=== PATIENT | male | born 1970 | race Caucasian/White ===

== ENCOUNTER 2021-11-16 10:11 | Emergency (ER) | payer BC, SELFPAY ==
--- NOTE | ~2021-11-16 | XR_ITS ---
XR chest 2V 11/16/2021 11:05 Indication: Shortness of breath and CHF Procedure: Two-view chest Comparison: No prior studies for comparison. Findings: Cardiomegaly. Defibrillator lead overlies the right atrium. No focal air space disease, pul monary edema, pleural effusion or suspected pneumothorax. Impression: 1: Cardiomegaly. Reviewed, dictated and finalized at location A. Impression: 1: Cardiomegaly.
[2021-11-16 10:27] VITALS: BP 194/171; PULSE 90; RESP 34; TEMP 37; O2SAT 99
--- NOTE | 2021-11-16 10:36 | ED.URI ---
HPI - URI/Sore Throat General Chief Complaint: Shortness of Breath/Dyspnea Stated Complaint: cough that makes it hard to breathe Time Seen by Provider: 11/16/21 10:43 Source: patient and RN notes reviewed Mode of arrival: ambulatory Limitations: no limitations History of Present Illness HPI Narrative: 51-year-old male with history of CHF diabetes, kidney failure, dialysis, presents with concern for cough and shortness of breath. He reports he has had a runny nose for approximately 1 week, he has been coughing for 2 days. He reports sweats. Denies chills or fever. Reports chronic body aches. He denies take any suyo-iqw-cxlwdzn cold medicines. He reports he did not take his blood pressure medication today MD elicited complaint: cough Related Data Home Medications Medication Instructions Recorded Confirmed albuterol sulfate 90 mcg/actuation inh inhalation 11/16/21 aerosol inhaler allopurinol 100 mg tablet tablet 11/16/21 allopurinol 300 mg tablet tablet 11/16/21 atorvastatin 20 mg tablet tablet 11/16/21 bupropion HCl 150 mg tablet,12 hr 150 mg PO BID 11/16/21 11/16/21 sustained-release carvedilol 25 mg tablet tablet 11/16/21 cyclobenzaprine 5 mg tablet tablet 11/16/21 dulaglutide 0.75 mg/0.5 mL ea subcut 11/16/21 subcutaneous pen injector (Trulicity) ezetimibe 10 mg tablet tablet 11/16/21 famotidine 20 mg tablet tablet 11/16/21 gabapentin 600 mg tablet tablet 11/16/21 levothyroxine 100 mcg tablet tablet 11/16/21 potassium chloride 20 mEq tablet PO 11/16/21 tablet,extended release(part/cryst) (Klor-Con M) sacubitril 49 mg-valsartan 51 mg tablet 11/16/21 tablet (Entresto) sevelamer carbonate 800 mg tablet tablet 11/16/21 spironolactone 25 mg tablet tablet 11/16/21 Allergies Allergy/AdvReac Type Severity Reaction Status Date / Time No Known Allergies Allergy Verified 11/16/21 10:45 Review of Systems Review of Systems: CONSTITUTIONAL: Denies malaise, chills, sweats, or fever. EYES: Denies visual changes, redness, or discharge. ENT: Reports rhinorrhea. Denies congestion, sinus pain, otalgia and sore throat. CARDIOVASCULAR: Denies chest pain, palpitations, or edema. RESPIRATORY: Reports cough, dyspnea. GASTROINTESTINAL: Denies abdominal pain, nausea, vomiting, diarrhea SKIN: Denies rash or itching. MUSCULOSKELETAL: Reports chronic myalgia. NEUROLOGIC: Denies headache. All systems reviewed & are unremarkable except as noted in HPI and below PMFSH Comments At time of signature, agree with nursing past medical, surgical, social and family history. There is no relevant family history pertinent to the presenting complaint Exam Narrative: GENERAL: Nontoxic appearing and in no acute distress. HEAD: Normocephalic EYES: PERRLA, conjunctivae clear ENT: Nares clear, clear discharge. Mucous membranes moist. TM pearly mayes with sharp light reflex bilaterally; no tragal tenderness. Oropharynx not erythematous without lesions. Tonsils not enlarged and without exudate, no drooling, no hoarseness, no trismus, uvula midline. NECK: Supple. No lymphadenopathy CHEST: Clear to auscultation, breath sounds equal. No wheezing, rhonchi, rales, or stridor. No respiratory distress, speaks in full sentences. HEART: Regular rate and rhythm. Murmur heard. SKIN: Warm, dry, no rash. NEURO: Alert and oriented x3. PSYCH: Normal mood and affect Course Course Emergency Course: Patient is aware of diagnosis, understands and agrees to treatment plan. Anticipatory guidance given. Patient agrees to follow-up as directed and is aware of reasons to seek care at the emergency department. Portions of this record may have been created with voice recognition software Level of Care: Express Care Visit Vital Signs Vital signs: Vital Signs Temperature 98.6 F 11/16/21 10:27 Pulse Rate 90 11/16/21 10:27 Respiratory Rate 34 H 11/16/21 10:27 Blood Pressure 194/171 H 11/16/21 10:27 Pulse Oximetry 99 11/16/21 1
[2021-11-16 10:45] VITALS: BP 170/100
--- NOTE | 2021-11-16 12:15 | PC.NURSE ---
1030 reported did not take b/p med today, will take when returns home. ORCHESTRA TEACHER aware.
== END 2021-11-16 11:35 | disposition home or self-care (01) ==
PROVIDERS: Emergency Provider Nurse Practitioner; PCP Internal Medicine
DX: J06.9 Acute upper respiratory infection, unspecified (principal); Z20.822 Contact with and (suspected) exposure to COVID-19; E78.00 Pure hypercholesterolemia, unspecified; K21.9 Gastro-esophageal reflux disease without esophagitis; I13.2 Hypertensive heart and chronic kidney disease with heart failure and with stage 5 chronic kidney disease, or end stage renal disease; E11.22 Type 2 diabetes mellitus with diabetic chronic kidney disease; N18.6 End stage renal disease; I50.9 Heart failure, unspecified; Z99.2 Dependence on renal dialysis; E03.9 Hypothyroidism, unspecified; E11.40 Type 2 diabetes mellitus with diabetic neuropathy, unspecified
CPT/HCPCS: 71046; 87426; 99213; C9803; G0463

== ENCOUNTER 2024-05-10 14:08 | Emergency (ER) | payer BC, SELFPAY ==
--- NOTE | ~2024-05-10 | XR_ITS ---
EXAMINATION: XR chest 2V DATE: 05/10/2024 14:58 INDICATION: Cough and increased dyspnea TECHNIQUE: frontal and lateral views of the chest were obtained. COMPARISON: Chest radiograph dated 11/16/2021 FINDINGS: Heart size normal. There is enlargement of the central pulmonary arteries consistent with pulmonary a rterial hypertension. No focal airspace opacities, pulmonary edema, pleural effusion or pneumothorax. Dual lead pacemaker/AICD seen with leads projecting over the expected locations of the right atrium and right ventricle. There is an additional likely defibrillator with lead in the presternal subcut aneous tissues. IMPRESSION: 1. Unchanged enlargement of the central pulmonary arteries consistent with pulmonary arterial hyperte nsion. No acute cardiopulmonary disease. Reviewed, dictated and finalized at location B. NT EVALUATOR IMPRESSION: 1. Unchanged enlargement of the central pulmonary arteries consistent with pulm onary arterial hypertension. No acute cardiopulmonary disease.
[2024-05-10 14:18] VITALS: BP 142/77; PULSE 111; RESP 20; TEMP 37.6; O2SAT 97
--- NOTE | 2024-05-10 14:31 | ED_ITS ---
HPI - URI/Sore Throat General Chief Complaint: Upper Respiratory Infection Stated Complaint: flu like symptoms Time Seen by Provider: 05/10/24 14:31 Source: patient, RN notes reviewed and old records reviewed Mode of arrival: ambulatory Limitations: no limitations History of Present Illness HPI Narrative: 53 year old male with multiple health problems presents to express care with complaints of increase cough with increased production of mucous and shortness of breath and body aches since yesterday. Patient reports that he has been taking cold and flu medication and also some cough medication. Patient reports that he had to call off work today and needs a work note. Patient reports that he has not noted any increase pedal edema or any increased fullness to abdomen or lower extremities. MD elicited complaint: cough and other (body aches, shortness of breath) Pertinent past history: other (CHF, neueopathy, diabetes, pacemaker with AICD, previously was on dialysis, hypertension) Onset (ago): day(s) (since yesterday) Consistency: constant Severity: moderate Able to tolerate fluids by mouth: Yes Exacerbating factors: other (incrased dyspnea with exertion) Treatments prior to arrival: other (cough medication, cold and flu medication) Related Data Home Medications ?Medication ?Instructions ?Recorded ?Confirmed ?Last Taken ?Type allopurinol 100 mg tablet 1 tablet PO DAILY 11/16/21 11/18/21 Unknown History allopurinol 300 mg tablet 1 tablet PO DAILY 11/16/21 11/18/21 Unknown History atorvastatin 20 mg tablet 1 tablet PO DAILY 11/16/21 11/18/21 Unknown History bupropion HCl 150 mg tablet,12 hr 150 mg PO BID 11/16/21 11/16/21 Unknown History sustained-release carvedilol 25 mg tablet 25 tablet PO TID 11/16/21 11/18/21 Unknown History ezetimibe 10 mg tablet 1 tablet PO DAILY 11/16/21 11/18/21 Unknown History famotidine 20 mg tablet 1 tablet PO DAILY 11/16/21 11/18/21 Unknown History gabapentin 600 mg tablet 1 tablet PO TID 11/16/21 11/18/21 Unknown History levothyroxine 100 mcg tablet 1 tablet PO DAILY 11/16/21 11/18/21 Unknown History sacubitril 49 mg-valsartan 51 mg 1 tablet PO BID 11/16/21 11/18/21 Unknown History tablet (Entresto) sevelamer carbonate 800 mg tablet 1 tablet PO TID 11/16/21 11/18/21 Unknown History spironolactone 25 mg tablet 2 tablet PO DAILY 11/16/21 11/18/21 Unknown History insulin aspart U-100 .ROUTE 05/10/24 Unknown History torsemide .ROUTE 05/10/24 Unknown History Allergies Allergy/AdvReac Type Severity Reaction Status Date / Time No Known Allergies Allergy Verified 05/10/24 14:22 Review of Systems Review of Systems: CONSTITUTIONAL: Reports malaise, reports no chills, sweats, or fever. EYES: Denies visual changes, redness, or discharge. ENT: Reports rhinorrhea, congestion, sinus pain,no otalgia and no sore throat. CARDIOVASCULAR: Denies chest pain, palpitations, or edema. RESPIRATORY: Reports cough.?Reports dyspnea. GASTROINTESTINAL: Denies abdominal pain, nausea, vomiting, diarrhea SKIN: Denies rash or itching. MUSCULOSKELETAL:Reports myalgia. NEUROLOGIC: Denies headache. All systems reviewed & are unremarkable except as noted in HPI and below PMFSH Past Medical History Medical History (Updated 05/13/24 @ 21:05 by Qiana Hamilton NP) Kidney disorder was formerly on dialysis but is no longer requiring dialysis Hemodialysis access, AV graft former history of dialysis Presence of combination internal cardiac defibrillator (ICD) and pacemaker Neuropathy Hypothyroidism Diabetes Hyperlipidemia Hypertension CHF (congestive heart failure) Surgical History Surgical History (Updated 05/13/24 @ 21:00 by Qiana Hamilton NP) H/O left knee surgery Social History Social History (Updated 05/13/24 @ 20:56 by Qiana Hamilton NP) Smoking status: Never smoker Alcohol intake: unknown Substance use: unknown Living arrangements: with family Gender identity (if verbalized by the patient): Male Comments At time of signature, agree with nursing past medical, surgical, social and family history. There is no relevant family history pertinent to the presenting complaint Exam Narrative: GENERAL: Well-appearing, well-nourished, morbidly obese and in no acute distress. HEAD: Normocephalic EYES: PERRLA, conjunctivae clear ENT: Nares clear, turbinates edematous and erythematous, clear discharge. Mucous membranes moist. TM pearly mayes with dull light reflex bilaterally; no tragal tenderness. Oropharynx erythematous without lesions. Tonsils not enlarged and w ithout exudate, no drooling, no hoarseness, no trismus, uvula midline.post nasal drainage noted NECK: Supple. No lymphadenopathy CHEST: Scattered wheezing throughout lung olsen, breath sounds equal.+ wheezing, no rhonchi, rales, or stridor. No respiratory distress, speaks in full sentences. dyspnea with minimal exertion, cough noted SAO2 97% on room air HEART: Regular rate and rhythm. No murmur heard., trace pedal edema SKIN: Warm, dry, no rash. NEURO: Alert and oriented x3. PSYCH: Normal mood and affect Course Course Emergency Course: Patient is aware of diagnosis, understands and agrees to treatment plan.? Anticipatory guidance given.? Patient agrees to follow-up as directed and is aware of reasons to seek care at the emergency department. Portions of this record may have been created with voice recognition software Level of Care: Express Care Visit Vital Signs Vital signs: Vital Signs Temperature 37.6 C 05/10/24 14:18 Pulse Rate 111 H 05/10/24 14:18 Respiratory Rate 20 05/10/24 14:18 Blood Pressure 142/77 H 05/10/24 14:18 Pulse Oximetry 97 05/10/24 14:18 Oxygen Delivery Room Air 05/10/24 14:18 Temperature 37.6 C 05/10/24 14:18 Pulse Rate 111 H 05/10/24 14:18 Respiratory Rate 20 05/10/24 14:18 Blood Pressure 142/77 H 05/10/24 14:18 Pulse Oximetry 97 05/10/24 14:18 Oxygen Delivery Room Air 05/10/24 14:18 Reviewed MDM - URI/Sore Throat MDM Narrative Medical decision making narrative: Differential diagnosis considered: Gonzalez virus, strep pharyngitis, allergic rhinitis, upper respiratory tract infection, sinusitis, rhinosinusitis, nasopharyngitis. viral pharyngitis, otitis media, otitis externa, pneumonia, bronchitis, viral cough syndrome, viral syndrome, and influenza.? Exam findings show no acute concerns or changes; patient is non-toxic appearing and is in no distress.? Patient is appropriate for outpatient treatment and follow-up. Differential Diagnosis Differential diagnosis: Likely upper respiratory infection, viral infection, bronchitis, influenza and other (COVID, increased dyspnea) Medical Records Attestation: I reviewed the patient's medical records. Lab Data Attestation: I reviewed the patient's lab results. Lab results narrative: influenza A negative, Influenza B negative, COVID antigen negative Labs: Lab Results 05/10/24 05/10/24 05/10/24 Range/Units 14:33 14:33 14:34 POC Influenza A Ag Negative Negative (Negative) POC Influenza B Ag Negative Negative (Negative) POC SARS CoV-2 Ag Negative Negative (Negative) Imaging Data Attestation: I personally reviewed and interpreted this imaging study as follows: My impression: unchanged enlargement of the central pulmonary arteries consistent with pulmonary arterial hypertension No acute cardiopulmonary disease Radiologist's impression: Launch?[facility] [place] [address] XRay Report Signed Patient: Noel Barrios : 1970 MR#: [id number] Age: 53 Acct:[id number] Loc: [facility] ADM Date: 05/10/24Attending Dr: Ordering Physician: Qiana Hamilton APRN Date of Service: 05/10/24 Procedure(s): XR chest 2V Accession Number(s): [id number] cc: Lilia, Jose Lawrence MD; Qiana Hamilton APRN~ EXAMINATION: XR chest 2V DATE: 05/10/2024 14:58 INDICATION: Cough and increased dyspnea TECHNIQUE: frontal and lateral views of the chest were obtained. COMPARISON: Chest radiograph dated 11/16/2021 FINDINGS: Heart size normal. There is enlargement of the central pulmonary arteries consistent with pulmonary arterial hypertension. No focal airspace opacities, pulmonary edema, pleural effusion or pneumothorax. Dual lead pacemaker/AICD seen with leads projecting over the expected locations of the right atrium and right ventricle. There is an additional likely defibrillator with lead in the presternal subcutaneous tissues. IMPRESSION: 1. Unchanged enlargement of the central pulmonary arteries consistent with pulmonary arterial hypertension. No acute cardiopulmonary disease. Reviewed, dictated and finalized at location B. BER HELPER Dictated By: Benitez Sheridan MD 05/10/24 1501 Signed By: <Electronically signed by Benitez Sheridan MD in OV> Critical Care Time Critical Care Time Critical Care Time: No Discharge Plan Discharge Clinical Impression: Bronchitis, PAH (pulmonary artery hypertension) Patient Disposition: Home, Self-Care Condition: Stable Instructions: Antibiotic Form, Acute Bronchitis (ED) Additional Instructions: Increase fluids especially juices and water [facility]pmt-pit-acreihm cough and cold medicine of your choice for your symptoms Continue your inhaler/nebulizer as directed patient reports that he has inhaler at home of Albuterol Steroids as directed--take with food heat to the face 20-30 minutes 4-6 times a day for pain Salt water gargles, throat lozenges or throat sprays as desired Antibiotic as directed--finished the medication If your symptoms persist, change or worsen significantly before you can contact your personal physician then please, without delay, go to the emergency department for further evaluation. Follow-up with PCP in 7-10 days or sooner if needed Follow up with PCP soon in regards to your blood pressure which is elevated above threshold for referral. Blood pressure above 120/80 may indicate pre- hypertension.142/[address] Rodrigues for follow up appointment soon Patient Language: Bulgarian Prescriptions: New azithromycin 250 mg tablet See Rx Instructions .ROUTE .COMPLEX Qty: 6 0RF Rx Instructions: For 250 mg dose pack: take 500 mg today (day 1), then 250 mg for 4 days (days 2-5) prednisone 20 mg tablet 20 mg PO BID Qty: 10 0RF No Action carvedilol 25 mg tablet 25 tablet PO TID gabapentin 600 mg tablet 1 tablet PO TID atorvastatin 20 mg tablet 1 tablet PO DAILY allopurinol 100 mg tablet 1 tablet PO DAILY spironolactone 25 mg tablet 2 tablet PO DAILY levothyroxine 100 mcg tablet 1 tablet PO DAILY famotidine 20 mg tablet 1 tablet PO DAILY allopurinol 300 mg tablet 1 tablet PO DAILY ezetimibe 10 mg tablet 1 tablet PO DAILY sevelamer carbonate 800 mg tablet 1 tablet PO TID Entresto 49-51 mg tablet 1 tablet PO BID bupropion HCl 150 mg Tablet Sustained-Release 12 Hr 150 mg PO BID torsemide .ROUTE insulin aspart U-100 [Novolog FlexPen U-100 Insulin] .ROUTE Follow-up/Referrals: Lilia,Jose Lawrence MD [Primary Care Provider] - Stand Alone Forms: Work/School Release IP Time of Disposition: 15:23 Quality [place] Coma Scale Eyes: Open Verbal: Oriented and Alert Motor: Follows Commands [place] Coma Total Score: 15
[2024-05-10 14:35] LABS: EDCOVIDSCREEN Negative (Negative); EDINFLUASCREEN Negative (Negative); EDINFLUBSCREEN Negative (Negative)
[2024-05-10 14:36] LABS: EDINFLUASCREEN Negative (Negative); EDINFLUBSCREEN Negative (Negative)
== END 2024-05-10 15:30 | disposition home or self-care (01) ==
PROVIDERS: Emergency Provider Registered Nurse; PCP Internal Medicine
DX: J40 Bronchitis, not specified as acute or chronic (principal); I27.21 Secondary pulmonary arterial hypertension; Z20.822 Contact with and (suspected) exposure to COVID-19; I11.0 Hypertensive heart disease with heart failure; E11.40 Type 2 diabetes mellitus with diabetic neuropathy, unspecified; E03.9 Hypothyroidism, unspecified; E78.5 Hyperlipidemia, unspecified; Z95.810 Presence of automatic (implantable) cardiac defibrillator
CPT/HCPCS: 71046; 87426; 87804; 99213; G0463

== ENCOUNTER 2024-06-10 16:21 | Emergency (ER) | payer BC, SELFPAY ==
--- NOTE | ~2024-06-10 | XR_ITS ---
EXAMINATION: XR chest 2V DATE: 06/10/2024 17:09 INDICATION: Cough. TECHNIQUE: Frontal and lateral views of the chest were obtained on 3 radiographs. COMPARISON: Chest 2 views 05/10/2024 FINDINGS: There is no pneumonia, pleural effusion, or pneumothorax. The heart size is normal. There i s a left chest wall pacer with leads in the right atrium and right ventricle. There is an implanted d efibrillator with electrode overlying the midline. IMPRESSION: 1. No acute cardiopulmonary disease. Reviewed, dictated and finalized at location A. R RELATIONS COORDINATOR
--- OUTSIDE RECORDS SUMMARY | 2024-06-10 16:23 | XMS_ITS | Clinical Summary ---
Author Organization [facility] Address [address] [place] [address] Phone Care Team Providers Care Community Services Coordinator Name Role Phone Jose Rodrigues MD Primary Care Provider [phone] Social History Tobacco Use Types Packs/Day Years Used Date Smoking Tobacco: Never Assessed Sex and Gender Information Value Date Recorded Sex Assigned at Not on file Legal Sex Male 10:56 PM CDT Gender Identity Not on file Sexual Orientation Not on file Plan of Treatment Health Maintenance Due Date Last Done Comments Hepatitis C Virus (HCV) Screening 1970 TdaP Immunization 1970 Hepatitis B Immunization (1 of 3 - 19+ 3-dose series) 1988 Colonoscopy 2014 Colorectal Cancer Screening 2014 Cologuard 2019 Immunochemical Fecal Occult Blood 2019 Pneumococcal Immunization (5 0+ years) (1 of 1 - PCV) 2019 Zoster Immunization (1 of 2) 2019 Influenza Immunization (#1) 2024 SARS-COV-2 Immunization ( - 2023- season) 2024 Respiratory Syncytial Virus (RSV) Immunization (Adult) (1 - 1-dose 75+ series) 2044 Meningococcal Immunization (ACWY) Aged Out No longer eligible based on patient's age to complete this topic Pneumococcal Immunization Combined Aged Out No longer eligible based on patient's age to complete this topic Rotavirus Immunization Aged Out No lo nger eligible based on patient's age to complete this topic Insurance [facility] Care Teams Community Services Coordinator Relationship Specialty Start Date End Date Jose Rodrigues MD [address] [place] [id number] PCP - General 05/21/17
--- OUTSIDE RECORDS SUMMARY | 2024-06-10 16:24 | XMS_ITS | Encounter Summary ---
Author Organization [facility] Address [address] [place] [address] Care Team Providers Care Senior Associate Name Role Phone Jose Rodrigues MD Primary Care Provider [phone] Reason for Visit * Reason Onset Date Comments Needs Form Or Letter Filled Out 03/07/2022 Encounter Details Date Type Department Care Team (Late st Contact Info) Description 03/07/2022 Telephone [facility] [address] [place] [address] Jose Rodrigues MD [address] [place] [address] [address] [place] [address] Needs Form Or Letter Filled Out Social History Tobacco Use Types Packs/Day Years Used Date Smoking Tobacco: Never Smokeless Tobacco: Never Alcohol Use Standard Drinks/Week Comments No 0 (1 standard drink = 0.6 oz pur e alcohol) Sex and Gender Information Value Date Recorded Sex Assigned at Not on file Legal Sex Male 11:33 AM CDT Gender Identity Not on file Sexual Orientation Not on file COVID-19 Exposure Response Date Recorded In the last 10 days, have yo u been in contact with someone who was confirmed or suspected to have Coronavirus/COVID-19? No / Unsure 03/05/2022 3:18 PM CDT documented as of this encounter Miscellaneous Notes * Telephone Encounter - Farnaz Ortiz - 03/08/2022 3:56 PM CDT Fax return to work letter to pt e-mail [email or web address] * Telephone Encounter - Laura Godwin - 03/08/2022 2:47 PM CDT Provider: Jose Rodrigues MD Next office visit: Visit date not found Caller: Phoebe (mom) for Noeljamison Barrios Message: Patient needs his form for back to work as he is going back tomorrow 03/09. It needs to be placed on [facility] Call-back Number: [phone] (home) * Telephone Encounter - Susanne Matias - 03/08/2022 12:37 PM CDT Mom called back with dates patient would like to return back to work 03/09 tomorrow * Telephone Encounter - Kelly Goldstein - 03/07/2022 4:21 PM CDT Spoke with Julian's mom she will call back with the dates in the morning. Julian is asleep * Telephone Encounter - Jose Rodrigues MD - 03/07/2022 11:40 AM CDT Ok type letter Call pt verify dates * Telephone Encounter - Laura Godwin - 03/07/2022 11:01 AM CDT Provider: Jose Rodrigues MD Next office visit: Visit date not found Caller: Noel Barrios Message: Patient needs return to work letter to say he can return back to work 04/09/2022. 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 Office Visit [address] [place] [address] Jose Rodrigues MD [address] [place] [phone] 12/01/2024 9:00 AM CDT Office Visit [address] [place] [address] Jose Rodrigues MD [address] [place] [phone] documented as of this encounter Visit Diagnoses Not on filedocumented in this encounter Additional Health Concerns Infection Onset Date Last Indicated Resolved Time MRSA Comment:Resolved per Type and Duration of Precautions Recommended for Selected Infections and Conditions document 2023 update 12/09/2018 12/09/2018 01/27/20 10:58 AM CDT documented as of this encounter Care Teams Senior Associate Relationship Specialty Start Date End Date Jose Rodrigues MD PCP - General Internal Medicine 10/02/16 documented as of this encounter
--- OUTSIDE RECORDS SUMMARY | 2024-06-10 16:24 | XMS_ITS | Clinical Summary ---
Author Organization [facility] Address [address] [place] [address] Care Team Providers Care Turbo Electric Operator Name Role Phone Unavailable Primary Care Provider Unavailabl e Medications carvedilol (COREG) 12.5 MG tablet Take 1 tablet (12.5 mg total) by mouth in the morning and 1 tablet (12.5 mg total) in the evening. 180 tablet 3 05/30/2022 Active Social History Tobacco Use Types Packs/Day Years Used Date Smoking Tobacco: Never Assessed Sex and Gender Information Value Date Recorded Sex Assigned at Not on file Legal Sex Male 4:43 PM EDT Gender Identity Not on file Sexual Orientation Not on file Plan of Treatment Health Maintenance Due Date Last Done Comments Pneumococcal Vaccine: Pediat rics (0 to 5 Years) and At-Risk Patients (6 to 64 Years) (1 of 2 - PCV) 1975 Hepatitis B Vaccine (1 of 5 - Risk Dialysis 4-dose series) 1989 Colorectal Cancer Screening: Annual FOBT 2018 Colorectal Cancer Screening: Colonoscopy 2018 Colorectal Cancer Screening: Sigmoidoscopy 2018 Influenza Vaccine (#1) 2024 02/22/2000, 1999 Insurance [facility]
--- OUTSIDE RECORDS SUMMARY | 2024-06-10 16:24 | XMS_ITS | Clinical Summary ---
Author Organization [facility] Address [address] [place] [address] Care Team Providers Care Wildlife Ecology Professor Name Role Phone Jose Rodrigues MD Primary Care Provider [phone] Source Comments [facility],non-owned Affiliates and Associated Physician Practices is amultiple site organization consisting of ambulatory clinics and hospital sitesin [place], [place], [place]. This disclosure is being madepursuant to the Care Everywhere program and may not contain all information available regarding this patient. 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 Alwaysverify current medications with the patient. Medication Sig Dispensed Refills Start Date End Date Status carvedilol (COREG) 25 MG tablet Take 1 (one) tablet by mouth 3 times daily with meals Active ezetimibe (ZETIA) 10 MG tablet Take 1 (one) tablet by mouth once daily Active fluticasone-vilant connor (BREO ELLIPTA) 100-25 MCG/INH inhaler Inhale 1 (one) puff by mouth once daily Administer at the same time each day. Rinse mouth after using Active sacubitril-valsart an (ENTRESTO) 49-51 MG tablet Take 2 (two) tablets by mouth 2 times daily Activ e torsemide (DEMADEX) 100 MG tablet Take 1 (one) tablet by mouth once daily Takes Friday and Friday Active allopurinol (ZYLOPRIM) 300 MG tablet Take 400 mg by mouth once daily Active aspirin EC (ECOTRIN) 81 MG tablet Take 1 (one) tablet by mouth once daily Active atorvastatin (LIPITOR) 20 MG tablet Take 1 (one) tablet by mouth at bedtime Active Cholecalciferol 1.25 MG (42825 UT) Active dulaglutide (TRULICITY) 0.75 MG/0.5ML injection Inject 0.5 mL subcutaneously every 7 days Active levothyroxine (SYNTHROID) 100 MCG tablet Take 1 (one) tablet by mouth daily before breakfast Active spironolactone (ALDACTONE) 25 MG tablet Take 1 (one) tablet by mouth 2 times daily Active sevelamer carbonate (RENVELA) 800 MG Take 1 (one) tablet by mouth 3 times daily with meals Active Cyanocobalamin (VITAMIN B 12 PO) Take by mouth once daily Active allopurinol (Zyloprim) 100 MG tablet TAKE 1 TABLET BY MOUTH EVERY DAY. TAKE 1 TAB ( 100MG) AND 1 TAB (300MG) EVERY DAY 07/30/2022 Active albuterol HFA (Proventil; Ventolin; Proair) 108 (90 Base) MCG/ACT inhaler INHALE 2 PUFFS BY MOUTH EVERY 6 HOURS NEEDED FOR SHORTNESS OF BREATH 09/20/2022 Active OneTouch Verio test strip CHECK BLOOD SUGAR TWO TIMES A DAY 02/24/2023 Active Mounjaro 5 MG/0.5ML injection 03/03/2023 Active sertraline (Zoloft) 50 MG tablet 02/12/2023 Active famotidine (Pepcid) 20 MG tablet Take 1 (one) tablet by mouth 11/20/2022 Active Active Problems Problem Noted Date Diagnosed Date ESRD (end stage renal disease) 10/30/2020 Family History Medical History Relation Name Comments CAD (Coronary Artery Disease) Father Diabetes - Type 2 Maternal Grandfather Relation Name Status Comments Father Maternal Grandfather Social History Tobacco Use Types Packs/Day Years Used Date Smoking Tobacco: Never Smokeless Tobacco: Never Tobacco Cessation:Counseling Given: No Alcohol Use Standard Drinks/Week Comments Not Currently 0 (1 standard drink = 0.6 oz pur e alcohol) Sex and Gender Information Value Date Recorded Sex Assigned at Not on file Gender Identity Not on file Sexual Orientation Not on file Last Filed Vital Signs Vital Sign Reading Time Taken Comments Blood Pressure 162/62 03/28/2023 10:00 AM LOGGING CREW SUPERVISOR Pulse 74 03/28/2023 10:00 AM LOGGING CREW SUPERVISOR Temperature 35.7 ??C (96.2 ??F) 03/28/2023 9:08 AM CS T Respiratory Rate 18 03/28/2023 10:0 0 AM LOGGING CREW SUPERVISOR Oxygen Saturation 91% 03/28/2023 10: 00 AM LOGGING CREW SUPERVISOR Inhaled Oxygen Concentration - - Weight 203.9 kg (449 lb 8.3 oz) 03/28/2023 9:08 AM LOGGING CREW SUPERVISOR Height 185.4 cm (6' 1 ) 03/28/2023 9:08 AM LOGGING CREW SUPERVISOR Body Mass Index 59.31 03/28/2023 9:08 AM LOGGING CREW SUPERVISOR Plan of Treatment Health Maintenance Due Date Last Done Comments COLOGUARD (AGES 45-75) - COLON CA SCREENING 1969 COLON MONITORING 1969 COLONOSCOPY - COLON CA SCREENING 1969 CT COLONOGRAPHY - COLON CA SCREENING 1969 Colorectal Cancer Screening 1970 FIT - COLON CA SCREENING 1969 FLEX SIG - COLON CA SCREENING 1969 HIV SCREENING 1984 HEPATITIS C SCREENING 06/02/1987 DTAP/TDAP/TD VACCINES (1 - Tdap) 1988 HEPATITIS B VACCINE (1 of 3 - 19+ 3-dose series) 1988 PNEUMOCOCCAL VACCINE 50+ (1 of 1 - PCV) 2019 ZOSTER VACCINE (1 of 2) 2019 COVID-19 VACCINE (3 - 2023- season) 2024 10/30/2020, 10/08/2020 INFLUENZA VACCINE (#1) 2024 2, 02/08/2021, 02/04/2020, Additional history exists SCREENING FOR DIABETES 01/18/2024 01/17/2021, 2020 DEPRESSION SCREENING 05/12/2024 HIB VACCINE Aged Out No longer eligi ble based on patient's age to complete this topic HPV VACCINE Aged Out No longer eligi ble based on patient's age to complete this topic MENINGOCOCCAL (Group B) VACCINE Aged Out No longer eligible based on patient's age to complete this topic MENINGOCOCCAL VACCINE Aged Out No fredo edson eligible based on patient's age to complete this topic PNEUMOCOCCAL VACCINE Aged Out No long er eligible based on patient's age to complete this topic Procedures Procedure Name Priority Date/Time Associated Diagnosis Comments BASIC METABOLIC PANEL (CALCIUM TOTAL) STAT 01/17/2021 7:09 AM CDT Preop examination from Last 3 Months or Most Recently Relevant to Health Maintenance Results * (ABNORMAL) BASIC METABOLIC PANEL (CALCIUM TOTAL) (01/17/2021 7:09 AM CDT) Glucose 122(H) 70 - 105 mg/dL 01/17/2021 7:30 AM CDT [facility] Sodium 136 136 - 145 mmol/L 01/17/2021 7:30 AM CDT [facility] Potassium 5.0 3.5 - 5.1 mmol/L 01/17/2021 7:30 AM CDT [facility] Chloride 99 98 - 107 mmol/L 01/17/2021 7:30 AM CDT [facility] CO2 22(L) 23 - 31 mmol/L 01/17/2021 7:30 AM CDT [facility] Calcium 9.1 8.4 - 10.4 mg/dL 01/17/2021 7:30 AM CDT [facility] Anion Gap 15 8 - 18 mmol/L 01/17/2021 7:30 AM CDT [facility] BUN 52(H) 8.4 - 25.7 mg/dL 01/17/2021 7:30 AM CDT [facility] Creatinine 5.16(H) 0.72 - 1.25 mg/dL 01/17/2021 7:30 AM CDT [facility] eGFR by MDRD 12(L) >60 mL/min/1.7 3m2 01/17/2021 7:30 AM CDT [facility] eGFR by MDRD 14(L) >60 mL/min/1.7 3m2 01/17/2021 7:30 AM CDT [facility] Blood BLOOD SPECIMEN / Unknown Venipuncture / Unknown 01/17/2021 7:09 AM CDT 01/17/2021 7:14 AM CDT Selina Rodriguez DO LAB - CHEMISTRY AUDREY AHN [facility] [address] [place] [address] from Last 3 Months or Most Recently Relevant to Health Maintenance Care Teams Wildlife Ecology Professor Relationship Specialty Start Date End Date Jose Rodrigues MD PCP - General Internal Medicine 10/27/17
--- OUTSIDE RECORDS SUMMARY | 2024-06-10 16:24 | XMS_ITS | Encounter Summary ---
Author Organization [facility] Address [address] [place] [address] Phone Care Team Providers Care Plant Guard Name Role Phone Unavailable Primary Care Provider Unavailabl e Encounter Details Date Type Department Care Team (Late st Contact Info) Description 05/11/2022 Treatment [facility] [address] [place] [address] Tyrone Garcia MD [address] [place] [address] Social History Tobacco Use Types Packs/Day Years Used Date Smoking Tobacco: Never Assessed Sex and Gender Information Value Date Recorded Sex Assigned at Not on file Legal Sex Male 4:43 PM EDT Gender Identity Not on file Sexual Orientation Not on file documented as of this encounter Miscellaneous Notes * Dialysis Note - Tyrone Garcia MD - 05/11/2022 12:00 AM CST Patient: Noel Barrios, 1970, 51y, M Dialysis Location: [facility] Attending Associate Product Manager: Tyrone Garcia Service Date: 05/11/2022 Service Provider: Tyrone Garcia MD I met face to face with the patient today. OVERVIEW The patient presented with ESRD on dialysis Primary cause of renal failure: Type 2 diabetes mellitus with other diabetic kidney complication Medications and labs reviewed. LAST HOSPITALIZATION Discharge Diagnosis: T88.8XXA Other specified complications of surgical and medical care, not elsewhere classified, initial encounter Admission Date 06/28/21 Discharge Date 06/29/21 DIALYSIS PRESCRIPTION IHD 3x Week Start date: 05/02/22 Dialyzer: Optiflux 250NRe BFR: 550 DFR: Autoflow 2 Potassium: 2.0 Sodium: 137 EDW: 221 Duration: 5:00 Calcium: 2.5 Bicarb: 35 Rx updated on: 05/02/2022 TREATMENT ASSESSMENT Blood pressure elevated. BP Stand Pre 05/11/2022: 196/110 BP Sit Pre 05/11/2022: 206/105 05/09/2022: 169/83 05/04/2022: 135/60 BP Stand Post 05/11/2022: 162/72 BP Sit Post 05/11/2022: 164/74 05/09/2022: 158/70 05/04/2022: 191/105 Tx Duration 05/11/2022: 4:35 05/09/2022: 3:15 05/04/2022: 3:19 Missed Treatments 3 - last 30 days 5 - last 60 days 05/07 - recent FLUID ASSESSMENT Fluid status acceptable. Interdialytic weight gain acceptable. No changes indicated. EDW (kg) 05/11/2022: 221.0 05/09/2022: 221.0 05/04/2022: 221.0 Weight Pre (kg) 05/11/2022: 226.3 05/09/2022: 224.9 05/04/2022: 225.9 Weight Post (kg) 05/11/2022: 221.3 05/09/2022: 222.2 05/04/2022: 222.3 PWV (kg) 05/11/2022: 0.3 05/09/2022: 1.2 05/04/2022: 1.3 UF Rate (mL/kg/hr) 05/11/2022: 4.9 05/09/2022: 3.7 05/04/2022: 4.9 ADEQUACY ASSESSMENT Adequacy target met. Prescription compliance acceptable. No changes indicated. spKt/V, URR 05/09/2022: 0.89, 55.0 04/16/2022: 1.07, 61.0 03/19/2022: 1.41, 70.0 ACCESS ASSESSMENT Access Type: AVGraft Access SubType: Synthetic - Flixene Access Status: Active (In Use) - 06/16/2021 Access Location: Left Forearm Created: 05/03/2021 Flow 05/02/2022: 623 04/03/2022: 840 03/09/2022: 539 Vascular access reviewed. Current access is permanent and functioning well. ANEMIA ASSESSMENT Anemia reviewed. Anemia targets met. HGB, TSAT 05/09/2022: 12.2, - 04/30/2022: 12.3, - 04/23/2022: 12.6, 15.0 Ferritin 03/26/2022: 35.0 12/18/2021: 55.0 BMM ASSESSMENT Bone and mineral metabolism parameters reviewed. Calcium controlled. Phosphorus controlled. PTH within target. Phosphorus, Calcium 04/23/2022: 4.2, 9.0 03/26/2022: 4.4, 8.9 02/21/2022: 4.1, 8.7 PTH, Intact 03/26/2022: 192.0 12/18/2021: 207.0 Vitamin D (Calcitriol) Oral (mcg) 05/11/2022: 1.25 05/09/2022: 1.25 05/04/2022: 1.25 NUTRITION ASSESSMENT Nutrition reviewed. Potassium controlled. Albumin, Potassium 04/23/2022: 4.0, 4.4 03/26/2022: 4.2, 4.5 02/21/2022: 4.0, 4.8 eNPCR 05/09/2022: 0.52 04/16/2022: 0.5 03/19/2022: 0.59 PHYSICAL EXAM Exam Performed. DIAGNOSIS Chief Complaint: N18.6 End stage renal disease Patient data updated 05/11/2022 at 4:44 PM Signed By: Tyrone Garcia MD on 05/11/2022 4:46:18 PM documented in this encounter Plan of Treatment Not on file documented as of this encounter Visit Diagnoses Not on filedocumented in this encounter
--- OUTSIDE RECORDS SUMMARY | 2024-06-10 16:24 | XMS_ITS | Referral Summary ---
Author Organization [facility] Address [address] [place] [address] Care Team Providers Care Cushion Maker Name Role Phone Jose Rodrigues MD Primary Care Provider [phone] Source Comments [facility],non-owned Affiliates and Associated Physician Practices is amultiple site organization consisting of ambulatory clinics and hospital sitesin [place], [place], [place] and [place]. This disclosure is being madepursuant to the Care Everywhere program and may not contain all information available regarding this patient. Last updated 18.[facility] Allergies Active Allergy Reactions Criticality Noted Date [...] mouth at bedtime Active Cholecalciferol 1.25 MG (10007 UT) Active dulaglutide (TRULICITY) 0.75 MG/0.5ML injection [...] Date ESRD (end stage renal disease) 10/30/2020 Social History Tobacco Use Types Packs/Day Years [...] Comments Blood Pressure 162/62 03/28/2023 10:00 AM TABLE GAMES MANAGER Pulse 74 03/28/2023 10:00 AM TABLE GAMES MANAGER Temperature 35.7 ??C (96.2 ??F) 03/28/2023 9:08 AM CS T Respiratory Rate 18 03/28/2023 10:0 0 AM TABLE GAMES MANAGER Oxygen Saturation 91% 03/28/2023 10: 00 AM TABLE GAMES MANAGER Inhaled Oxygen Concentration - - Weight 203.9 kg (449 lb 8.3 oz) 03/28/2023 9:08 AM TABLE GAMES MANAGER Height 185.4 cm (6' 1 ) 03/28/2023 9:08 AM TABLE GAMES MANAGER Body Mass Index 59.31 03/28/2023 9:08 AM TABLE GAMES MANAGER Functional Status Functional Status Response Date of Assess ment Is person deaf or have serious hearing difficult y? No 11/15/2020 Is person blind or have serious difficulty seein g? No 11/15/2020 Does person have serious dif ficulty walking/climbing stairs? Yes 11/15/2020 Does person have difficulty dressing/bathing? No 11/15/2020 Does person have difficulty doing errands alone? No 11/15/2020 Cognitive Status Response Date of Assessm ent Does person have difficulty concentrating/remembering/making decisions? No 11/15/2020 Plan of Treatment Not on file Procedures Procedure Name Priority Date/Time Associated Diagnosis Comments BASIC METABOLIC PANEL (CALCIUM TOTAL) STAT 01/17/2021 7:09 AM CDT Preop examination from Last 3 Months or Most Recently Relevant to Health Maintenance Results * (ABNORMAL) BASIC METABOLIC PANEL (CALCIUM TOTAL) (01/17/2021 7:09 AM CDT) Glucose 122(H) 70 - 105 mg/dL 01/17/2021 7:30 AM CDT [facility] Sodium 136 136 - 145 mmol/L 01/17/2021 7:30 AM CDT [facility] Potassium 5.0 3.5 - 5.1 mmol/L 01/17/2021 7:30 AM CDT [facility] Chloride 99 98 - 107 mmol/L 01/17/2021 7:30 AM CDT [facility] CO2 22(L) 23 - 31 mmol/L 01/17/2021 7:30 AM CDT [facility] Calcium 9.1 8.4 - 10.4 mg/dL 01/17/2021 7:30 AM CDT [facility] Anion Gap 15 8 - 18 mmol/L 01/17/2021 7:30 AM CDT [facility] BUN 52(H) 8.4 - 25.7 mg/dL 01/17/2021 7:30 AM CDT [facility] Creatinine 5.16(H) 0.72 - 1.25 mg/dL 01/17/2021 7:30 AM CDT [facility] eGFR by MDRD 12(L) >60 mL/min/1.7 2 01/17/2021 7:30 AM CDT [facility] eGFR by MDRD 14(L) >60 mL/min/1.7 3m2 01/17/2021 7:30 AM CDT [facility] Blood BLOOD SPECIMEN / Unknown Venipuncture / Unknown 01/17/2021 7:09 AM CDT 01/17/2021 7:14 AM CDT Selina Rodriguez DO LAB - CHEMISTRY AUDREY AHN [facility] [address] [place] [address] from Last 3 Months or Most Recently Relevant to Health Maintenance Care Teams Cushion Maker Relationship Specialty Start Date End Date Jose Rodrigues MD PCP - General Internal Medicine 10/27/17
--- OUTSIDE RECORDS SUMMARY | 2024-06-10 16:24 | XMS_ITS | Encounter Summary ---
Author Organization [facility] Address [address] [place] [address] Care Team Providers Care Underwater Welder Name Role Phone Jose Rodrigues MD Primary Care Provider [phone] Encounter Details Date Type Department Care Team (Late st Contact Info) Description 06/09/2024 External Device Data STL ABSTRACTION Provider, Abstract NO ADDRESS ON FILE Social History Tobacco Use Types Packs/Day Years [...] on file documented as of this encounter Plan of Treatment Upcoming Encounters Date Type Department Care Team (Late st Contact Info) Description 06/16/2024 4:00 PM DIESEL LOCOMOTIVE FIRER/FIREMAN Office Visit [address] [place] [address] Jose Rodrigues MD [address] [place] [address] [address] [place] [address] 12/01/2024 9:00 AM CDT Office Visit [address] [place] [address] Jose Rodrigues MD [address] [place] [address] [address] [place] [address] documented as of this encounter Visit Diagnoses Not on filedocumented in this encounter Care Teams Underwater Welder Relationship Specialty Start Date End Date Jose Rodrigues MD PCP - General Internal Medicine 10/02/16 documented as of this encounter
--- OUTSIDE RECORDS SUMMARY | 2024-06-10 16:24 | XMS_ITS ---
Author Organization [facility] Address [address] [facility] [address] Care Team Providers Care Feather Trimmer Name Role Phone Jose Rodrigues Primary Care Provider Yunior Campbell Jr, MD, Simon [facility] [phone] REASON FOR VISIT lt quad tendon repair Encounters Encounter Location Date Provider Diagnosis [facility] [address] [address] 05/18/2024 Simon Campbell Jr, MD PLAN OF TREATMENT No Information
--- OUTSIDE RECORDS SUMMARY | 2024-06-10 16:24 | XMS_ITS | Encounter Summary ---
Author Organization [facility] Address [address] [place] [address] Care Team Providers Care Finisher Operator Name Role Phone Jose Rodrigues MD Primary Care Provider [phone] Reason for Visit * Reason Onset Date Comments Letter for School/Work 11/28/2021 Encounter Details Date Type Department Care Team (Late st Contact Info) Description 11/28/2021 Telephone [facility] Primary Care [address] [place] [address] Jose Rodrigues MD [address] [place] [address] Letter for School/Work Social History Tobacco Use Types Packs/Day Years [...] suspected to have Coronavirus/COVID-19? No / Unsure 11/02/2021 10:32 AM CDT documented as of this encounter Miscellaneous Notes * Telephone Encounter - Lesley Guevara Candice - 11/29/2021 8:44 AM CDT Name of PCP Provider or Prescribing Provider: Jose Rodrigues MD Next office visit: 03/01/2022 Caller: Noel Barrios mom Phoebe Message: Return to work note He will need this no later than 11 today because he goes to work at 1 and he has to call them and let them know he has it. Please advise Call back Number: [phone] Phoebe * Telephone Encounter - Minnie Terrell - 11/28/2021 12:52 PM CDT Name of PCP Provider or Prescribing Provider: Jose Rodrigues MD Next office visit: 03/01/2022 Caller: Phoebe - mom Message: Patient's mom called to say that the excuse from work letter they received does not contain the return to work date on it. They are asking that it be rewritten to include the return date of 11/27 and emailed to the patent. Call back Number: [phone] documented in this encounter Plan of Treatment Upcoming Encounters Date Type Department Care Team (Late st Contact Info) Description 06/16/2024 4:00 PM JOINERY SETTER OUT Office Visit [address] [place] [phone] Jose Rodrigues MD [address] [place] [phone] 12/01/2024 9:00 AM CDT Office Visit [address] [place] [phone] Jose Rodrigues MD [address] [place] [address] [address] [place] [phone] documented as of this encounter Visit Diagnoses Not on filedocumented in this encounter Additional Health Concerns Infection Onset Date Last Indicated Resolved Time MRSA Comment:Resolved per Type and Duration of Precautions Recommended for Selected Infections and Conditions document 2023 update 12/09/2018 12/09/2018 01/27/20 10:58 AM CDT documented as of this encounter Care Teams Finisher Operator Relationship Specialty Start Date End Date Jose Rodrigues MD PCP - General Internal Medicine 10/02/16 documented as of this encounter
--- OUTSIDE RECORDS SUMMARY | 2024-06-10 16:24 | XMS_ITS ---
Author Organization [facility] Address [address] [facility] [address] [address] Care Team Providers Care Material Yard Clerk Name Role Phone Jose Rodrigues Primary Care Provider Yunior Campbell Jr, MD, Simon [facility] [phone] Encounters Encounter Location Date Provider Diagnosis [facility] [address] [place] [address] 03/01/2024 Simon Campbell Jr, MD PLAN OF TREATMENT No Information
--- OUTSIDE RECORDS SUMMARY | 2024-06-10 16:24 | XMS_ITS | Encounter Summary ---
Author Organization [facility] Address [address] [place] [address] Phone Care Team Providers Care Wet Chemistry Analyst Name Role Phone Unavailable Primary Care Provider Unavailabl e Encounter Details Date Type Department Care Team (Late st Contact Info) Description 04/09/2022 Treatment [facility] [address] [place] [address] Tryone Garcia MD [address] [place] [address] Social History Tobacco Use Types Packs/Day Years Used Date Smoking Tobacco: Never Assessed Sex and Gender Information Value Date Recorded Sex Assigned at Not on file Legal Sex Male 4:43 PM EDT Gender Identity Not on file Sexual Orientation Not on file documented as of this encounter Miscellaneous Notes * Dialysis Note - Tyrone Garcia MD - 04/09/2022 12:00 AM CST Patient: Noel Barrios, 1970, 51y, M Dialysis Location: [facility] Attending Hassock Maker: Tyrone Garcia Service Date: 04/09/2022 Service Provider: Tyrone Garcia MD I met [...] DIALYSIS PRESCRIPTION IHD 3x Week Start date: 04/09/22 Dialyzer: Optiflux 250NRe BFR: 550 DFR: Autoflow 2 Potassium: 2.0 Sodium: 137 EDW: 227 Duration: 5:00 Calcium: 2.5 Bicarb: 35 Rx updated on: 04/08/2022 TREATMENT ASSESSMENT Blood pressure controlled. No changes indicated. BP Sit Post, Tx Duration 04/09/2022: 149/85, 4:51 04/06/2022: 147/52, 3:43 04/03/2022: 163/72, 2:45 Missed Treatments 2 - last 30 days 6 - last 60 days 03/30 - recent FLUID ASSESSMENT Fluid status acceptable. Interdialytic weight gain acceptable. No changes indicated. EDW (kg), PWV (kg), UF Rate (mL/kg/hr) 04/09/2022: 227.0, 1.3, 3.5 04/06/2022: 220.0, 7.1, 4.5 04/03/2022: 220.0, 7.0, 3.7 ADEQUACY ASSESSMENT Adequacy target met. Prescription compliance acceptable. No changes indicated. spKt/v, URR 03/19/2022: 1.41, 70 03/05/2022: 1.26, 67 02/14/2022: 1.19, 64 ACCESS ASSESSMENT Access Type: AVGraft Access SubType: Synthetic - Flixene Access Status: Active (In Use) - 06/16/2021 Access Location: Left Forearm Created: 05/03/2021 Flow 04/03/2022: 840 03/09/2022: 539 01/31/2022: 1737 Vascular access reviewed. Current access is permanent and functioning well. ANEMIA ASSESSMENT Anemia reviewed. HGB, TSAT 04/09/2022: 11.4, - 04/01/2022: 12.4, - 03/26/2022: 12.9, 15.0 Ferritin 03/26/2022: 35.0 12/18/2021: 55.0 09/25/2021: 96.0 BMM ASSESSMENT Bone and mineral metabolism parameters reviewed. Calcium controlled. Phosphorus controlled. PTH within target. Phosphorus, Calcium 03/26/2022: 4.4, 8.9 02/21/2022: 4.1, 8.7 01/22/2022: 4.3, 8.7 PTH, Intact 03/26/2022: 192.0 12/18/2021: 207.0 09/18/2021: 226.0 Vitamin D (Calcitriol) Oral (mcg) 04/09/2022: 1.25 04/06/2022: 1.25 04/03/2022: 1.5 NUTRITION ASSESSMENT Nutrition reviewed. Potassium controlled. Albumin, Potassium 03/26/2022: 4.2, 4.5 02/21/2022: 4.0, 4.8 01/22/2022: 4.0, 4.5 eNPCR 03/19/2022: 0.59 03/05/2022: 0.58 02/14/2022: 0.7 PHYSICAL EXAM Exam Performed. Vital Signs Reviewed. Lungs - Clear. CV - Blood pressure noted. CV - RRR. EXT - No edema. EXT - No ulcers. DIAGNOSIS Chief Complaint: N18.6 End stage renal disease Patient data updated 04/10/2022 at 6:55 PM Signed By: Tyrone Garcia MD on 04/10/2022 6:56:27 PM documented in this encounter Plan of Treatment Not on file documented as of this encounter Visit Diagnoses Not on filedocumented in this encounter
--- OUTSIDE RECORDS SUMMARY | 2024-06-10 16:24 | XMS_ITS | Patient Health Record ---
Author Organization [facility] Address [address] [place], [place] [address] Care Team Providers Care Multiplex Operator Name Role Phone TUAN CABRERA MD Primary Care Provider Unavaila Tali Gonzalez Unavailable [phone] REASON FOR REFERRAL No Information MEDICATIONS Medication SIG (Take, Route, Frequency, Duration) Notes Start Date End Date Status Entresto 97 mg-103 mg 1 tab(s) orally 2 times a day Active Bystolic 20 mg 1 tab(s) orally once a day Active buPROPion 150 mg/12 hours 1 tab(s) orall y 2 times a day Active cefuroxime 500 mg 1 tab(s) orally ever y 12 hours Active spironolactone 50 mg 1 tab(s) orally 2 t imes a day Active colchicine 0.6 mg 1 tab(s) orally once a day Active atorvastatin 20 mg 1 tab(s) orally once a day Active torsemide 50 mg Acti ve traMADol 50 mg 1 tab(s) orally ever y 4 hours Active gabapentin 600 mg 1 tab(s) orally 3 ti mes a day Active ergocalciferol 50,000 intl units 1 cap(s) orally once a week for 90 Active Klor-Con 20 mEq 1 ea orally 2 times a day Active SOCIAL HISTORY Tobacco Use: Social History Observation Description Date Details (start date - stop date) Never Smoker NA - NA Sex Assigned At : Social History Observation Description Sex Assigned At Unknown Tobacco Use: Question Answer Notes Smoking Status nonsmoker PROBLEMS Problem Type ICD Code Onset Dates Problem Status W/U Status Risk SNOMED Code Notes Problem Polyarthralgia (M25.50) Active confirmed 86807967 Problem Hyperuricemia (E79.0) Active confirmed 04674437 Problem Elevated sed rate (R70.0) Active confirmed 348108089 Problem Idiopathic gout of multiple sites, unspecified chronicity (M10.09) Active confirmed 98609997 PLAN OF TREATMENT Pending Test Test Name Order Date X ray : Spines, lumbar- outside order INJ TRIAMCINOLONE ACETONIDE 10 MG 2017 X ray : SI joints- outside order 018 X ray : Foot Left- outside order 018 X ray : Foot Right- outside order 2017 -Xray slip given 08/22/2017 Insurance Providers Payer Name Payer Address Payer Phone Subscriber Number Group Number Insured Name Patient Relationship to Insured Coverage Start Date Coverage End Date Heidi Berg [address] [address] [place] [address] [id number] Noel Barrios Self - patient is the insured 8 MEDICAL (GENERAL) HISTORY Medical History History ICD Code CLEM Lymphedema STAPH INFECTION swelling of ankles/feet high blood pressure
--- OUTSIDE RECORDS SUMMARY | 2024-06-10 16:24 | XMS_ITS | Patient Health Record ---
Author Organization [facility] Address [address] [place] [address] Care Team Providers Care Formal Waiter/Waitress Name Role Phone Jose Rodrigues Primary Care Provider Yunior Campbell Jr, MD, [facility] ALLERGIES No Known Allergies REASON FOR REFERRAL No Information MEDICATIONS Medication SIG (Take, Route, Fr equency, Duration) Notes Start Date End Date Status Spironolactone Activ e Atorvastatin Calcium Active Levothyroxine Sodium Active Torsemide Active Ezetimibe Active Famotidine Active Gabapentin Active Magnesium Active Klor-Con Active Entresto Active Vitamin D3 Active NovoLOG Active Vitamin B12 Active Mounjaro Active Allopurinol Active Sertraline HCl Activ e buPROPion HCl Active IMMUNIZATIONS Vaccine Route Administration Date Status Comme nts Influenza Unknown 03/12/2023 Administered pneumoccocal Unknown 05/22/2023 Refused SOCIAL HISTORY Tobacco Use: Social History Observation Description Date Details (start date - stop date) Never Smoker NA - NA Sex Assigned At : Social History Observation Description Sex Assigned At Unknown Tobacco Use: Question Answer Notes Patient is a: nonsmoker Alcohol screening: Question Answer Notes Did you have a drink containing alcohol in the p ast year? No Points 0 Interpretation Negative PROBLEMS Problem Type ICD Code Onset Dates Problem Status W/U Status Risk SNOMED Code Notes Problem Other hammer toe(s) (acquired), left foot (M20.42) Active confirmed 83749178 Problem Pressure ulcer of other site, stage 2 (L89.892) Active confirmed 271028998 Problem Venous stasis dermatitis of lower extremity (I87.2) Active confirmed 447403475 Problem Cellulitis of left lower limb (L03.116) Active confirmed 57675930524976171 Problem Overgrown nail (L60.2) Active confirmed 18562815 Problem Onychomycosis (B35.1) Active confirmed 251288928 Problem Strain of left quadriceps muscle, fascia and tendon, initial encounter (S76.112A) 05/01/20 Active confirmed 802186295 Problem Overexertion from strenuous movement or load, initial encounter (X50.0XXA) 05/01/20 Active confirmed 41925869 Problem Encounter for other orthopedic aftercare (Z47.89) 05/23/19 Active confirmed 141541006 Problem Strain of left quadriceps muscle, fascia and tendon, subsequent encounter (S76.112D) 05/23/19 Active confirmed 94593257224245080 Problem Overexertion from strenuous movement or load, subsequent encounter (X50.0XXD) 05/23/19 Active confirmed 81755757 Problem Morbid obesity (E66.01) Active confirmed 880450127 Problem Body mass index [BMI] 60.0-69.9, adult (Z68.44) Active confirmed 908207670 VITAL SIGNS Heart Rate 75 /min 09/11/2023 Blood pressure diastolic 80 mm Hg 11/18/2023 Height 71 in 11/18/2023 Blood pressure systolic 135 mm Hg 11/18/2023 Weight 440 lbs 11/18/2023 BMI 61.36 kg/m2 11/18/2023 Encounters Encounter Location Date Provider Diagnosis [facility] [address], [place] [id number] 06/13/2023 Simon Campbell Jr, MD [facility] [address], [place] [address] 05/18/2024 Simon Campbell Jr, MD [facility] [address] [employer] [facility] [address], [place] [address] 06/26/2023 Simon Campbell Jr, MD Encounter for other orthopedic aftercare Z47.89 ; Strain of left quadriceps muscle, fascia and tendon, subsequent encounter S76.112D and Overexertion from strenuous movement or load, subsequent encounter X50.0XXD [facility] [address] [facility] [address], [place] [address] 07/17/2023 Simon Campbell Jr, MD Encounter for other orthopedic aftercare Z47.89 ; Strain of left quadriceps muscle, fascia and tendon, subsequent encounter S76.112D and Overexertion from strenuous movement or load, subsequent encounter X50.0XXD [facility] [address] [place] [address] 08/14/2023 Simon Campbell Jr, MD Encounter for other orthopedic aftercare Z47.89 ; Strain of left quadriceps muscle, fascia and tendon, subsequent encounter S76.112D and Overexertion from strenuous movement or load, subsequent encounter X50.0XXD [facility] [address] [facility] [address] 09/11/2023 Simon Campbell Jr, MD Strain of left quadriceps muscle, fascia and tendon, subsequent encounter S76.112D and Overexertion from strenuous movement or load, subsequent encounter X50.0XXD [facility] [address] [facility] [address] [place] [address] 11/18/2023 Simon Campbell Jr, MD Left leg weakness R29.898 ; Strain of left quadriceps muscle, fascia and tendon, subsequent encounter S76.112D ; Morbid obesity E66.01 and Body mass index [BMI] 60.0-69.9, adult Z68.44 [facility] [address] [place] [address] 06/13/2023 Simon Campbell Jr, MD [facility] [address] [facility] [address] [place] [address] 07/18/2023 Simon Campbell Jr, MD [facility] [address] [facility] [address] [facility] [place] [address] 09/15/2023 Simon Campbell Jr, MD [facility] [address] [facility] [address] [place] [address] 12/23/2023 Simon Campbell Jr, MD [facility] [address] [facility] [address] [place] [address] 03/01/2024 Simon Campbell Jr, MD [facility] [address] [facility] [address] [place] [address] 05/14/2024 Simon Campbell Jr, MD ASSESSMENTS Encounter Date Diagnosis Assessment Notes Treatment Notes Treatment Clinical Notes 06/26/2023 Encounter for other orthopedic aftercare (ICD-10 - Z47.89) 07/17/2023 Encounter for other orthopedic aftercare (ICD-10 - Z47.89) 08/14/2023 Encounter for other orthopedic aftercare (ICD-10 - Z47.89) 09/11/2023 Strain of left quadriceps muscle, fascia and tendon, subsequent encounter (ICD-10 - S76.112D) 11/18/2023 Left leg weakness (ICD-10 - R29.898) 06/26/2023 Strain of left quadriceps muscle, fascia and tendon, subsequent encounter (ICD-10 - S76.112D) 07/17/2023 Strain of left quadriceps muscle, fascia and tendon, subsequent encounter (ICD-10 - S76.112D) 08/14/2023 Strain of left quadriceps muscle, fascia and tendon, subsequent encounter (ICD-10 - S76.112D) 09/11/2023 Overexertion from strenuous movement or load, subsequent encounter (ICD-10 - X50.0XXD) 11/18/2023 Strain of left quadriceps muscle, fascia and tendon, subsequent encounter (ICD-10 - S76.112D) 06/26/2023 Overexertion from strenuous movement or load, subsequent encounter (ICD-10 - X50.0XXD) 07/17/2023 Overexertion from strenuous movement or load, subsequent encounter (ICD-10 - X50.0XXD) 08/14/2023 Overexertion from strenuous movement or load, subsequent encounter (ICD-10 - X50.0XXD) 11/18/2023 Morbid obesity (ICD-10 - E66.01) 11/18/2023 Body mass index [BMI] 60.0-69.9, adult (ICD-10 - Z68.44) PLAN OF TREATMENT No Information Insurance Providers Payer Name Payer Address Payer Phone Subscriber Number Group Number Insured Name Patient Relationship to Insured Coverage Start Date Coverage End Date [facility] [address] [place] [address] [id number] Noel Barrios Self - patient is the insured MEDICAL (GENERAL) HISTORY Medical History History ICD Code Insulin-dependent diabetes mellitus (IDD M) heart disease congestive heart failure hypertension hyperlipidemia kidney failure Surgical History Surgery Date(Month/Year) left quadriceps tendon repair (RDRJR) 05/04 cardiac cath fistula repair
--- OUTSIDE RECORDS SUMMARY | 2024-06-10 16:24 | XMS_ITS | Patient Health Summary ---
Author Organization [facility] Address [address] [place] [address] Care Team Providers Care Precise Winder Name Role Phone Jose Rodrigues MD Primary Care Provider Note from [facility],non-owned Affiliates and Associated Physician Practices is amultiple site organization consisting of ambulatory clinics and hospital sitesin [place], [place], [place]. This disclosure is being madepursuant to the Care Everywhere program and may not contain all information available regarding this patient. Last updated 18.[facility] Allergies * Chlorhexidine(Rash) -Medium Criticality * Povidone Iodine(Other) -Low Criticality * Vancomycin(Other) Medications * Be aware that medications may not be up to date on this document. Alwaysverify current medications with the patient. * carvedilol (COREG) 25 MG tablet Take 1 (one) tablet by mouth 3 times daily with meals * ezetimibe (ZETIA) 10 MG tablet Take 1 (one) tablet by mouth once daily * fluticasone-vilanterol (BREO ELLIPTA) 100-25 MCG/INH inhaler Inhale 1 (one) puff by mouth once daily Administer at the same time each day. Rinse mouth after using * sacubitril-valsartan (ENTRESTO) 49-51 MG tablet Take 2 (two) tablets by mouth 2 times daily * torsemide (DEMADEX) 100 MG tablet Take 1 (one) tablet by mouth once daily Takes Friday and Friday * allopurinol (ZYLOPRIM) 300 MG tablet Take 400 mg by mouth once daily * aspirin EC (ECOTRIN) 81 MG tablet Take 1 (one) tablet by mouth once daily * atorvastatin (LIPITOR) 20 MG tablet Take 1 (one) tablet by mouth at bedtime * Cholecalciferol 1.25 MG (15775 UT) * dulaglutide (TRULICITY) 0.75 MG/0.5ML injection Inject 0.5 mL subcutaneously every 7 days * levothyroxine (SYNTHROID) 100 MCG tablet Take 1 (one) tablet by mouth daily before breakfast * spironolactone (ALDACTONE) 25 MG tablet Take 1 (one) tablet by mouth 2 times daily * sevelamer carbonate (RENVELA) 800 MG Take 1 (one) tablet by mouth 3 times daily with meals * Cyanocobalamin (VITAMIN B 12 PO) Take by mouth once daily * allopurinol (Zyloprim) 100 MG tablet(Started 07/30/2022) TAKE 1 TABLET BY MOUTH EVERY DAY. TAKE 1 TAB ( 100MG) AND 1 TAB (300MG) EVERY DAY * albuterol HFA (Proventil; Ventolin; Proair) 108 (90 Base) MCG/ACT inhaler (Started 09/20/2022) INHALE 2 PUFFS BY MOUTH EVERY 6 HOURS NEEDED FOR SHORTNESS OF BREATH * OneTouch Verio test strip(Started 02/24/2023) CHECK BLOOD SUGAR TWO TIMES A DAY * Mounjaro 5 MG/0.5ML injection(Started 03/03/2023) * sertraline (Zoloft) 50 MG tablet(Started 02/12/2023) * famotidine (Pepcid) 20 MG tablet(Started 11/20/2022) Take 1 (one) tablet by mouth Active Problems Problem Noted Date Diagnosed Date [...] Comments Blood Pressure 162/62 03/28/2023 10:00 AM [facility] Pulse 74 03/28/2023 10:00 AM [facility] Temperature 35.7 ??C (96.2 ??F) 03/28/2023 9:08 AM CS T Respiratory Rate 18 03/28/2023 10:0 0 AM [facility] Oxygen Saturation 91% 03/28/2023 10: 00 AM [facility] Inhaled Oxygen Concentration - - Weight 203.9 kg (449 lb 8.3 oz) 03/28/2023 9:08 AM [facility] Height 185.4 cm (6' 1 ) 03/28/2023 9:08 AM [facility] Body Mass Index 59.31 03/28/2023 9:08 AM [facility] Procedures * CARDIAC RHYTHM STRIP ORDER(Performed 04/02/2023) * IR ANGIO AV SHUNT IMAGING(Performed 03/28/2023) Performed for Encounter regarding vascular access for dialysis for end-stage renal disease ([facility]) * CARDIAC RHYTHM STRIP ORDER(Performed 11/05/2022) * VAS DIALYSIS EXIST ACCESS SCAN(Performed 02/05/2021) Performed for Encounter regarding vascular access for dialysis for end-stage renal disease ([facility]) * ARTERIOVENOUS FISTULA TRANSPOSITION / SUPERFICIALIZATION(Performed 01/17/2021) * BASIC METABOLIC PANEL (CALCIUM TOTAL)(Performed 01/17/2021) Performed for Preop examination * VAS DIALYSIS EXIST ACCESS SCAN(Performed 12/25/2020) Performed for Encounter regarding vascular access for dialysis for end-stage renal disease ([facility]) * EKG 12-LEAD(Performed 11/15/2020) Performed for ESRD (end stage renal disease) ([facility]) * CREATION ARTERIOVENOUS (AV) FISTULA DIRECT(Performed 11/15/2020) * BASIC METABOLIC PANEL (CALCIUM TOTAL)(Performed 11/15/2020) Performed for Pre-op evaluation * VAS BILAT MAPPING FOR HEMODIALYSIS(Performed 10/30/2020) Performed for Encounter regarding vascular access for dialysis for end-stage renal disease ([facility]) * CARDIAC CATHETERIZATION, LEFT(Performed 10/31/2017) * LAB MISC TEST(Performed 10/29/2017) * NM MYOCARD PERF REST STRESS(Performed 10/24/2017) * STRESS TEST(Performed 10/24/2017) * EKG 12-LEAD(Performed 11/14/2016) * ECHO COMPLETE(Performed 11/08/2016) Results * CARDIAC RHYTHM STRIP ORDER (04/02/2023 1:54 AM [facility]) Only the most recent of2 resultswithin the time period is included. Narrative 04/02/2023 1:54 AM [facility] Ordered by an unspecified provider. Scanned Document CARDIAC SERVICES ORD ERABLES * IR ANGIO AV SHUNT IMAGING (03/28/2023 9:54 AM [facility]) Anatomical Region Laterality Modality Lower Extremity, Upper Extremity, Chest X-Ray Angiography Narrative 03/28/2023 10:14 AM Jasson Herrera MD ? 03/28/2023 10:18 AM [facility] Noel Barrios 1970 DATE OF PROCEDURE: 03/28/2023 ORDERING PHYSICIAN: Geno PROCEDURE: ??Left AV fistulogram with peripheral venous angioplasty INDICATIONS FOR PROCEDURE: ??Prolonged bleeding following decannulation DESCRIPTION OF PROCEDURE: The patient? s left forearm was prepped and draped in the normal sterile manner. ??Using local anesthesia the access was punctured with the needle directed towards the central circulation. ??A guidewire was advanced under fluoroscopy and a 5 Mosotho catheter placed. ??Digital subtraction images were obtained from the arterial anastomosis to the level of the SVC. ?? Reflux examination showed a widely patent arterial anastomosis to a small radial artery. ??There was a high-grade, approximately 95% stenosis of the cubital vein at the antecubital space. ??Centrally the veins were nicely patent. ??The decision was made to perform angioplasty. ??The 5 Mosotho sheath was upsized to a 6 Mosotho sheath. ??A series of catheter and wire manipulations were made to cross the stenosis and then an 8 mm by 4 cm balloon was dilated to 16 atmospheres with an excellent radiographic and clinical result. ??A total of 20 cc of contrast and 8.8 mGy radiation were used for the procedure. ??The balloon wire and sheath were removed and direct digital pressure was used for hemostasis. ??The patient left the center in stable and satisfactory condition. FINDINGS: ??High-grade venous outflow stenosis at the cubital vein, approximately 95%. ? IMPRESSION: ??Successful peripheral venous angioplasty as described. DICTATED BY: ??Jasson Demarco M.D. DATE DICTATED: 03/28/2023 Interventional Post-Operative/Procedure Notes Surgeon: ? Nilam Pre Procedure Diagnosis: ?? ESRD Post Procedure Diagnosis: ?? ESRD Anesthesia: ? Local 1% lidocaine Disposition: ? OPS Status: ? Stable Drain or Pack: ?None Additional Information/Complications: None Estimated Blood Loss: ?? Negligible Specimen: ? None Jasson Demarco MD IR ORDERABLES * VAS DIALYSIS EXIST ACCESS SCAN (02/05/2021 11:38 AM CDT) Only the most recent of2 resultswithin the time period is included. Anatomical Region Laterality Modality Lower Extremity Ultrasound 02/05/2021 11:2 4 AM CDT Narrative Procedure Note Gt Keller MD - 02/05/2021 [facility] [address], [address] [place] [address] Hemodialysis Graft Report Pat.Name: TYLER NOEL Edgar Pat.ID: [id number] .Date: 02/05/2021 Refer.MD: GENO BASS Exam Time: 11:24:00 AM Study Type:Hemodialysis Graft Age: 1 1970,50Y Sex: MALE Sonogrphr: Cheko Thomas RVT Pat. Stat.:Outpatient CPT - 4: 44934 Reason for Study: AV Fistula Evaluation, Chronic renal disease Procedures: AV Fistula Evaluation Race: 1 Visit ID: [id number] ++++++++++++++++++++++++++++++++++++ SUMMARY: ++++++++++++++++++++++++++++++++++++ Patent left wrist AV fistula. ++++++++++++++++++++++++++++++++++++ FINDINGS: ++++++++++++++++++++++++++++++++++++ Procedure: B-mode imaging, color flow Doppler and spectral analysis were used to evaluate the AV fistula in the forearm of the left upper extremity. Study Quality: This study is of adequate technical quality. Lt Arm: There is patent AV fistula involving the Lt cephalic vein and the radial artery. The average diameter measured 6.5 mm proximally, 7.3 mm mid, and 5.6 mm distally. This was marked for dialysis. Signed 02/05/2021 03:39 PM Gt Keller MD Gt Keller MD VASCULAR LAB ORDER LIBIA * (ABNORMAL) BASIC METABOLIC PANEL (CALCIUM TOTAL) (01/17/2021 7:09 AM CDT) Only the most recent of2 resultswithin the time period is included. Glucose 122(H) 70 - 105 mg/dL 01/17/2021 7:30 AM CDT [facility] Sodium 136 136 - 145 mmol/L 01/17/2021 7:30 AM CDT [facility] Potassium 5.0 3.5 - 5.1 mmol/L 01/17/2021 7:30 AM CDT [facility] Chloride 99 98 - 107 mmol/L 01/17/2021 7:30 AM CDT [facility] CO2 22(L) 23 - 31 mmol/L 01/17/2021 7:30 AM CDT [facility] Calcium 9.1 8.4 - 10.4 mg/dL 01/17/2021 7:30 AM CDT [facility] Anion Gap 15 8 - 18 mmol/L 01/17/2021 7:30 AM CDT [facility] BUN 52(H) 8.4 - 25.7 mg/dL 01/17/2021 7:30 AM CDT [facility] Creatinine 5.16(H) 0.72 - 1.25 mg/dL 01/17/2021 7:30 AM CDT [facility] eGFR by MDRD 12(L) >60 mL/min/1.7 3m2 01/17/2021 7:30 AM CDT [facility] eGFR by MDRD 14(L) >60 mL/min/1.7 3m2 01/17/2021 7:30 AM CDT [facility] Blood BLOOD SPECIMEN / Unknown Venipuncture / Unknown 01/17/2021 7:09 AM CDT 01/17/2021 7:14 AM CDT Selina Rodriguez DO LAB - CHEMISTRY AUDREY [facility] [address] [place] [address] * EKG 12-LEAD (11/15/2020 12:52 PM CDT) Only the most recent of2 resultswithin the time period is included. Ventricular Rate 82 BPM [facility] Atrial Rate 82 BPM [facility] P-R Interval 168 ms [facility] QRS Duration ms 114 ms [facility] Q-T Interval ms 452 ms [facility] QTC Calculation (Bezet) 528 ms [facility] Calculated P [place] 51 degrees [facility] Calculated R [place] 21 degrees [facility] Calculated T [place] 30 degrees [facility] Interpretation EKG Sinus rhythm with frequent Premature ventricular complexes in a pattern of bigeminy Low voltage QRS Incomplete left bundle branch block Prolonged QT Abnormal ECG No previous ECGs available Confirmed by EARNEST BARRAGAN MD ([id number]) on 11/16/2020 12:35:39 PM [facility] 11/15/2020 12:5 2 PM CDT 11/16/2020 12:35 PM CDT Zuleyma Mahan MD ECG ORDERABLES Performing Organization Address City/[facility]/ZIP Co de Phone Number [facility] * VAS BILAT MAPPING FOR HEMODIALYSIS (10/30/2020 1:03 PM CDT) Anatomical Region Laterality Modality Lower Extremity, Upper Extremity Ultrasound 10/30/2020 12:5 6 PM CDT Narrative Procedure Note Gt Keller MD - 10/30/2020 [facility] [place] [facility] [address] [facility], [address] [place] [address] Vessel Mapping for Hemodialysis Report Pat.Name: NOEL BARRIOS.ID: [id number] .Date: 10/30/2020 Refer.MD: GENO BASS Exam Time: 12:56:00 PM Study Type:Vessel Mapping for Hemodialysis Age: 1 1970,50Y Sex: MALE Sonogrphr: Cheko Thomas RVT Pat. Stat.:Outpatient CPT - 4: 97771 Reason for Study: Chronic renal disease Procedures: Vessel Mapping for Hemodialysis Race: 1 Visit ID: [id number] ++++++++++++++++++++++++++++++++++++ SUMMARY: ++++++++++++++++++++++++++++++++++++ The left cephalic vein in the upper extremity is adequate for access. ++++++++++++++++++++++++++++++++++++ FINDINGS: ++++++++++++++++++++++++++++++++++++ Procedure: Duplex vein mapping was carried out in the left upper extremity. Study Quality: This study is of adequate technical quality. Mapping Lt: The left cephalic vein is patent and compressible. The left basilic vein is patent and compressible. The left cephalic vein measured .39 cm at the wrist, .58 cm at the antecubital fossa and .6 cm in the upper arm. Comments: HIGH ARTERIAL BIFURCATION OF THE LEFT UPPER EXTREMITY. Signed 10/30/2020 02:43 PM Gt Keller MD Gt Keller MD VASCULAR LAB ORDER [facility] * CARDIAC CATHETERIZATION, LEFT (10/31/2017) Arthur Saul MD GENERIC SURGICAL HIS TORY * LAB MISC TEST (10/29/2017) Blood BLOOD SPECIMEN / Unknown Historical Provider LAB SEND OUT * STRESS TEST (10/24/2017) Provider Unknown SCANNING ONLY * NM MYOCARD PERF REST STRESS (10/24/2017) Anatomical Region Laterality Modality Chest Other Historical Provider NM ORDERABLES * ECHO COMPLETE (11/08/2016) Historical Provider ECHO ORDERABLES Care Teams Precise Winder Relationship Specialty Start Date End Date Jose Rodrigues MD PCP - General Internal Medicine 10/27/17
--- OUTSIDE RECORDS SUMMARY | 2024-06-10 16:24 | XMS_ITS ---
Author Organization [facility] Address [address] [facility] [address], [place] [address] Care Team Providers Care Adjuster Name Role Phone Jose Rodrigues Primary Care Provider Yunior Campbell Jr, MD, [facility] Encounters Encounter Location Date Provider Diagnosis [facility] [address] [place] [address] 05/14/2024 Simon Campbell Jr, MD PLAN OF TREATMENT No Information
[2024-06-10 16:25] VITALS: BP 130/67; PULSE 56; RESP 24; TEMP 36.8; O2SAT 99
--- OUTSIDE RECORDS SUMMARY | 2024-06-10 16:25 | XMS_ITS | Encounter Summary ---
Author Organization [facility] Address [address] [place] [address] Care Team Providers Care Hand Tube Bender Name Role Phone Jose Rodrigues MD Primary Care Provider [phone] Reason for Visit * Reason Comments Medication Question Encounter Details Date Type Department Care Team (Late st Contact Info) Description 09/11/[address] [facility] Primary Care [address] [place] [address] Jose Rodrigues MD [address] [facility] [address] [place] [address] Medication Question Social History Tobacco Use Types Packs/Day Years [...] encounter Miscellaneous Notes * Telephone Encounter - Arden Warner - 09/15/2023 4:40 PM CDT Pt was called and was given provider message. * Telephone Encounter - Jose Rodrigues MD - 09/11/2023 4:23 PM CDT We can see about Ozempic until it is available sent * Telephone Encounter - Valeri Yen - 09/11/2023 2:59 PM CDT Copied from [facility] #[id number]. Topic: Patient or Caregiver Communication Request >> September 11, 2023 2:58 PM Valeri Harvey wrote: Patient or Caregiver insisting that a message be sent to Care Team Caller: fortino Sandhu on phi Patient/Caregiver Callback Number: [phone] Call Notes: Caller stated cannot find Monjaro anywhere would like to know if there is an alternative medication. Please advise documented in this encounter Plan of Treatment Upcoming Encounters Date Type Department Care Team (Late st Contact Info) Description 06/16/2024 4:00 PM SUPERVISOR MAILS Office Visit [address], [place] [phone] Jose Rodrigues MD [address] [place] [phone] 12/01/2024 9:00 AM CDT Office Visit [address] [place] [phone] Jose Rodrigues MD [address] [place] [phone] documented as of this encounter Visit Diagnoses Not on filedocumented in this encounter Additional Health Concerns Infection Onset Date Last Indicated Resolved Time MRSA Comment:Resolved per Type and Duration of Precautions Recommended for Selected Infections and Conditions document 2023 update 12/09/2018 12/09/2018 01/27/20 10:58 AM CDT documented as of this encounter Care Teams Hand Tube Bender Relationship Specialty Start Date End Date Jose Rodrigues MD PCP - General Internal Medicine 10/02/16 documented as of this encounter
--- OUTSIDE RECORDS SUMMARY | 2024-06-10 16:25 | XMS_ITS | Encounter Summary ---
Author Organization [facility] Address [address] [place] [address] Care Team Providers Care Mixed Crop Farmer Name Role Phone Jose Rodrigues MD Primary Care Provider [phone] Reason for Visit * Reason Onset Date Comments ER Follow Up 02/14/2023 Encounter Details Date Type Department Care Team (Late st Contact Info) Description 02/14/2023 Telephone [facility] Primary Care [address] [place] [address] Jose Rodrigues MD [address] [facility] [address] [place] [address] ER Follow Up Social History Tobacco Use Types Packs/Day Years [...] encounter Miscellaneous Notes * Telephone Encounter - Jose Rodrigues MD - 02/14/2023 12:00 PM CDT Ok double book spot * Telephone Encounter - Christie Basurto - 02/14/2023 11:16 AM CDT Provider: Jose Rodrigues MD Next office visit: 05/15/2023 Jose Rodrigues MD Caller: [email or web address]-mom Message: Patient was seen at [facility] on Friday for pneumonia in his right lung, his mother is wanting to see if he can get an appt with Dr Rodrigues for a follow up on 02/17. Her mom has an appt with Dr. Rodrigues on that day at 9:40am she would like to bring them at the same time if possible Call-back Number: [phone] documented in this encounter Plan of Treatment Upcoming Encounters Date Type Department Care Team (Late st Contact Info) Description 06/16/2024 4:00 PM AUTOCAD ELECTRICAL [place] [address] Jose Rodrigues MD [address] [place] [address] 12/01/2024 9:00 [place] [address] Jose Rodrigues MD [address] [place] [address] documented as of this encounter Visit Diagnoses Not on filedocumented in this encounter Additional Health Concerns Infection Onset Date Last Indicated Resolved Time MRSA Comment:Resolved per Type and Duration of Precautions Recommended for Selected Infections and Conditions document 2023 update 12/09/2018 12/09/2018 01/27/20 24 10:58 AM CDT Assessment Noted Time PHQ-9 Depression Total Score: 1 12/12/19 23 12:31 PM CDT documented as of this encounter Care Teams Mixed Crop Farmer Relationship Specialty Start Date End Date Jose Rodrigues MD PCP - General Internal Medicine 10/02/16 documented as of this encounter
--- OUTSIDE RECORDS SUMMARY | 2024-06-10 16:25 | XMS_ITS | Continuity of Care Document ---
Author Organization [facility] Address [address] [place] [address] Phone Care Team Providers Care Consumer Insights Intern Name Role Phone Orion Kaur MD Unavailable Unavailable Allergies, Adverse Reactions, Alerts Substance Reaction Status Criticality No Known Allergies Active No Inform ation Medications Medication Instructions Dosage Effective Dates (start - stop) Status Comments Bystolic 20 mg tablet take 1 tablet by o ral route every day 20 MG - Active spironolactone 50 mg tablet take 1 tablet by oral route every day 50 MG - Active torsemide 100 mg tablet take 1 tablet by oral route every day 100 MG - Active meloxicam 15 mg tablet take 1 tablet by oral route every day 15 MG - Active atorvastatin 20 mg tablet take 1 tablet by oral route every day 20 MG - Active gabapentin 300 mg capsule take 1 capsule by oral route 2 times every day 300 MG - Active tramadol 50 mg tablet take 1 - 2 by Oral route every 4 - 6 hours 1-2 - Active Procedures Procedure Date OFFICE/OUTPATIENT VISIT EST OFFICE/OUTPATIENT VISIT EST OFFICE CONSULTATION Advance Directives Directive Yes / No Effective Date File Name No Information Encounters Encounter Description Practice Location Reason(s) For Visit Diagnoses Date Provider Providers Copied on Encounter OFFICE/OUTPAT IENT VISIT EST [facility], [address], [place], [address], [place] tel:[phone] [facility] Other synovitis and tenosynovitis, right ankle and footAcute left ankle pain 8 Natasha Sears. [address], [place], [place], [id number] . tel: [phone] OFFICE/OUTPAT IENT VISIT EST [facility], [address] [facility] [address], [place], [address], [phone] [facility] Other synovitis and tenosynovitis, right ankle and foot 8 Aubuchorama Sears. [address], [place], [place], [id number] . tel: [phone] Referring Provider: Orion Kaur, [address], [place], [address] . tel:[phone] OFFICE CONSULTATION [facility], [address] [facility] [address], [place], [address], [phone] [facility] Essential (primary) hypertensionPe roneal tendonitis of right lower legAcute right ankle painRight foot painOsteochond ral lesion 8 Aubuchorama Orion. [address], [place], [place], [id number] . tel: [phone] Family History Family Member Type Diagnosis Age At Onset Mother Problem (finding) Alive and well Payers Payer name Insurance type Covered republican ID Authorkeon valdespro(s) Blue Access PPO E2 OT [id number] Social History Type Description Quantity Date Captured Comments Alcohol Use Details Unknown Caffeine Use Details Unknown Tobacco Use Status No Information Smoking Status Never smoker Sex Male Chief Complaint And Reason For Visit No Information Reason For Referral Reason For Referral No Information Plan Of Treatment Date Type Action Status Referral Ordered: RADEX ANKLE COMPL MINIMUM 3 VIEWS RT ordered Referral Ordered: MRI ANY JT LXTR C-MATRL RT Ankle/Foot Appointment date/timeframe: 07/18/2017 ordered Future Order: Lab Order CBC w/di ff ([id number]), Ordered on: Ordered Future Order: Lab Order HUGO ([id number]), O rdered on: Ordered Future Order: Lab Order Sed rate ([id number]), Ordered on: Ordered Future Order: Lab Order Rheumato id Factor ([id number]), Ordered on: Ordered Future Order: Lab Order C-Reacti ve Protein, Quant ([id number]), Ordered on: Ordered History Of Present Illness Encounter Date Complaint History Of Prese nt Illness No Information Functional Status Date Functional Assessmen t No Information Instructions Date Instruction Additional Infor mation Activity as tolerated. Related t o Acute left ankle pain Ice as tolerated Related to Acut e left ankle pain activity as tolerated Related to Synovitis of ankle apply heating pad or ice as tole rated Related to Synovitis of ankle Giving encouragement to exercise Related to Essential (primary) hypertension activity as tolerated Related to Right foot pain apply heating pad or ice as tole rated Related to Right foot pain activity as tolerated Related to Right foot pain apply heating pad or ice as tole rated Related to Right foot pain Assessments Type Assessment Date assessment Other synovitis and tenosynoviti s, right ankle and foot assessment Acute left ankle pain 8 Patient Care Teams Name Effective Dates (start - stop) Status Members No Information
--- OUTSIDE RECORDS SUMMARY | 2024-06-10 16:25 | XMS_ITS | Continuity of Care Document ---
Author Organization [facility] Address [address] [place] [address] Phone Care Team Providers Care Social Media Developer Name Role Phone Orion Kaur MD Unavailable [...] Copied on Encounter OFFICE/OUTPAT IENT VISIT EST [facility], [address], [place], [address], [place] tel:[phone] [facility] Other synovitis and tenosynovitis, right ankle and footAcute left ankle pain 8 Natasha Sears. [address], [place], [place], [id number] . tel: [phone] OFFICE/OUTPAT IENT VISIT EST [facility], [address] [facility] [address], [place], [address], [phone] [facility] Other synovitis and tenosynovitis, right ankle and foot 8 Aubuchorama Sears. [address], [place], [place], [id number] . tel: [phone] Referring Provider: Orion Kaur, [address], [place], [address] . tel:[phone] OFFICE CONSULTATION [facility], [address] [facility] [address], [place], [address], [phone] [facility] Essential (primary) hypertensionPe roneal tendonitis of right lower legAcute right ankle painRight foot painOsteochond ral lesion 8 Aub[place]ama Orion. [address], [place], [place], [id number] . tel: [phone] Family History Family Member Type Diagnosis Age At Onset Mother Problem (finding) Alive and well Payers Payer name Insurance type Covered constitution party ID Authorkeon valdespro(s) Blue Access PPO E2 OT [id number] Social History Type Description Quantity Date Captured [...] Future Order: Lab Order CBC w/di ff ([id number]), Ordered on: Ordered Future Order: Lab Order HUGO ([id number]), O rdered on: Ordered Future Order: Lab Order Sed rate ([id number]), Ordered on: Ordered Future Order: Lab Order Rheumato id Factor ([id number]), Ordered on: Ordered Future Order: Lab Order C-Reacti ve Protein, Quant ([id number]), Ordered on: Ordered History Of Present Illness [...]
--- OUTSIDE RECORDS SUMMARY | 2024-06-10 16:25 | XMS_ITS | Referral Summary ---
Author Organization [facility] Address [address] [place] [address] Care Team Providers Care Test Fixture Assembler Name Role Phone Jose Rodrigues MD Primary Care Provider + Allergies Active Allergy Reactions Criticality Noted Date Comments Povidone-Iodine Agitation Low 09/13/2021 Medications amlodipine-samir azepril (LOTREL) 5-40 mg per capsule 3 7 Active furosemide (LASIX) 80 mg tablet Take 60 mg by mouth 2 (two) times a day. Active potassium chloride ER (KLOR-CON,K-DU R) 20 mEq CR tablet Take 20 mEq by mouth 2 (two) times a day. Active doxazosin (CARDURA) 8 mg tablet Take 8 mg by mouth nightly. Active doxycycline (doxycycline hyclate) 100 mg capsule Take 100 mg by mouth. 7 Active metoprolol (LOPRESSOR) 100 mg tablet Take 100 mg by mouth. Active pravastatin (PRAVACHOL) 40 mg tablet Take 40 mg by mouth. Active atorvastatin (LIPITOR) 20 mg tablet Take 20 mg by mouth. 7 Active cyanocobalamin (Vitamin B-12) 1,000 mcg tabletIndicati ons:Prevention of Vitamin B12 Deficiency Take 1,000 mcg by mouth. Active ERGOCALCIFEROL , VITAMIN D2, ORAL Take by mouth. Activ e levoFLOXacin (LEVAQUIN) 500 mg tablet 7 Active mupirocin (BACTROBAN) 2 % ointment 7 Active BYSTOLIC 10 mg tablet 7 Active ENTRESTO 97-103 mg tabletIndicati ons:chronic heart failure 7 Active spironolactone (ALDACTONE) 50 mg tablet 7 Active torsemide (DEMADEX) 100 mg tablet 7 Active buPROPion XL (WELLBUTRIN XL) 150 mg 24 hr tablet Take 150 mg by mouth. 7 Active nebivolol (BYSTOLIC) 20 mg tablet Take 20 mg by mouth. 7 Active traMADol (ULTRAM) 50 mg tablet Take 50 mg by mouth every 6 (six) hours. Active ibuprofen (ADVIL,MOTRIN) 800 mg tablet Take 1 tablet (800 mg total) by mouth 3 (three) times a day. 21 tablet 7 Active Additional Information Patient not taking.Reported on 04/14/2019 gabapentin (NEURONTIN) 600 mg tablet Take 600 mg by mouth 3 (three) times a day Active allopurinol (ZYLOPRIM) 300 mg tablet Take 300 mg by mouth daily Active famotidine (PEPCID) 20 mg tablet Take 20 mg by mouth 2 (two) times a day Active colchicine (COLCRYS) 0.6 mg tablet Take 0.6 mg by mouth daily Active mupirocin (BACTROBAN) 2 % ointment Apply topically daily Apply with each dressing change. Collaborating physician Colten Wright MD 22 g 1 2 Active HYDROcodone-ac etaminophen (NORCO) 5-325 mg per tabletIndicati ons:Pain Take 1 tablet by mouth every 6 (six) hours as needed for pain 12 tablet 3 Active Active Problems Problem Noted Date Diagnosed Date Laceration of third toe of right foot 03/01/2022 Cellulitis of third toe of right foot 03/01/2022 Tinea unguium 03/01/2022 Morbid obesity 04/14/2019 BMI 50.0-59.9, adult 04/14/2019 Social History Tobacco Use Types Packs/Day Years Used Date Smoking Tobacco: Never Smokeless Tobacco: Never Tobacco Cessation:Counseling Given: Not Answered Alcohol Use Standard Drinks/Week Comments Not Currently 0 (1 standard drink = 0.6 oz pur e alcohol) Personal Safety Answer Date Recorded Have you ever been in or are you currently in a harmful physical or emotional relationship or is someone making you feel afraid or unsafe? Denies 05/03/2023 Sex and Gender Information Value Date Recorded Sex Assigned at Not on file Legal Sex Male 8:10 PM SHED HAND Gender Identity Not on file Sexual Orientation Not on file Last Filed Vital Signs Vital Sign Reading Time Taken Comments Blood Pressure 115/86 05/03/2023 7:00 AM SHED HAND Pulse 79 05/03/2023 7:00 AM SHED HAND Temperature 36.4 ??C (97.5 ??F) 05/03/2023 5:57 AM CS T Respiratory Rate 17 05/03/2023 5:59 AM SHED HAND Oxygen Saturation 96% 05/03/2023 7:00 AM SHED HAND Inhaled Oxygen Concentration - - Weight 198 kg (436 lb 8.2 oz) 05/03/2023 5:59 AM SHED HAND Height 185.4 cm (6' 1 ) 06/28/2022 3:51 PM SHED HAND Body Mass Index 57.59 06/28/2022 3:51 PM SHED HAND Plan of Treatment Not on file Insurance [facility] CHOICE [facility] [place]PO [place] BLUE ACCESS OOS Care Teams Test Fixture Assembler Relationship Specialty Start Date End Date Jose Rodrigues MD [address] [place] [address] PCP - General 10/21/16
--- OUTSIDE RECORDS SUMMARY | 2024-06-10 16:25 | XMS_ITS | Clinical Summary ---
Author Organization [facility] Address [address] [place] [address] Care Team Providers Care Stained Glass Installer Name Role Phone Jose Rodrigues MD Primary Care Provider [phone] Allergies Active Allergy Reactions Criticality Noted Date Comments Chlorhexidine Rash Medium 11/15/2020 Lactose Nausea and Vomiting,Abdominal Pain Low 11/13/2017 Vancomycin Other (See Comments) Medium 10/25/2020 Other reaction(s): Other Anisha syndrome Medications cyanocobalamin 1,000 mcg Tablet Take 1,000 mcg by mouth daily. Active atorvastatin (LIPITOR) 20 mg tablet Take 1 Tablet (20 mg) by mouth late in the day. 90 Tablet 3 018 Active cholecalciferol, vitamin D3, (VITAMIN D3 ORAL) Take 1,000 mg by mouth. Active ASPIRIN ORAL Take by mouth. Ac tive ENTRESTO 24-26 mg Tablet TAKE 1 TABLET BY MOUTH TWICE A DAY 0 019 Active spironolactone (ALDACTONE) 25 mg tablet TAKE 1 TABLET BY MOUTH EVERY DAY 3 019 Active modafiniL (PROVIGIL) 100 mg TabletIndications :Sleep apnea, unspecified type Take 1 Tablet (100 mg) by mouth daily. 30 Tablet 3 020 Active Additional Information Patient not taking.Reported on 12/11/2023 metoprolol tartrate (LOPRESSOR) 50 mg tablet Take 1 Tablet (50 mg) by mouth 2 times daily. 180 Tablet 3 021 Active Additional Information Patient not taking.Reported on 12/11/2023 carvediloL (COREG) 25 mg tablet Take by mouth. Active acetaminophen (TYLENOL) 325 mg tablet Take 2 Tablets by mouth post-proc every 6 hours. Active fluticasone furoate-vilantero L (Breo Ellipta) 100-25 mcg/dose Disk with Device Take by inhalation. Active ezetimibe (ZETIA) 10 mg tablet Take 10 mg by mouth daily. Active sevelamer carbonate (RENVELA) 800 mg Tablet 2 Tablets. Active lancetsIndication s:Type 2 diabetes mellitus without complication, without long-term current use of insulin ([facility]) E11.9 CHECK 2 TIMES DAILY 200 Each 3 Active benzonatate (TESSALON) 200 mg capsule Take 1 Capsule (200 mg) by mouth 3 times daily as needed for Cough. 40 Capsule 1 Active Additional Information Patient not taking.Reported on 12/11/2023 mupirocin (BACTROBAN) 2 % Ointment Apply to affected area daily. Bid leg 22 Gram 2 Active Additional Information Patient not taking.Reported on 12/11/2023 HYDROcodone-aceta minophen (NORCO) 5-325 mg tabletIndications :Pain of both elbows Take 1 Tablet by mouth every 8 hours as needed for Pain, Moderate. Max Daily Amount: 3 Tablets 21 Tablet Active Additional Information Patient not taking.Reported on 12/11/2023 albuterol sulfate 90 mcg/Actuation inhaler Take 2 Puffs by inhalation every 6 hours as needed for Shortness of Breath. 8.5 Gram 1 Active Additional Information Patient not taking.Reported on 12/11/2023 pen needle, diabetic (NovoFine Plus) 32 gauge x 1/6 Needle 1 Each by [facility]Non-Drug; Combo Route) route 4 times daily. For use qid with sliding scale insulin 120 Each 6 Active valACYclovir (Valtrex) 500 mg tablet Take 1 Tablet (500 mg) by mouth daily. 7 Tablet Active insulin degludec (Tresiba FlexTouch U-100) 100 unit/mL pen syringe Lot: [id number] ex: 09/09/23 qty: 2 3 mL 023 Active Additional Information Patient not taking.Reported on 12/11/2023 lidocaine-priloca ine (EMLA) 2.5-2.5 % Cream Apply to affected area see administration instructions. To dialysis site 3 c per week 30 Gram 10 023 Active Additional Information Patient not taking.Reported on 12/11/2023 colchicine (COLCRYS) 0.6 mg tablet 1 tab(s) orally once a day Active ergocalciferol (VITAMIN D2) 50,000 unit capsule 1 cap(s) orally once a week for 90 Active insulin glargine (Lantus Solostar U-100 Insulin) 100 unit/mL pen syringe 12 unit(s), SubQ, daily, 1 each, Injection, 0, 0, When on 20mg prednisone use 8 units. When on 10mg prednisone discontinue, Route to Pharmacy Electronically, [facility]/pharmacy #[id number], [id number], 185, cm, 05/22/2022 0530, Height, 21... 023 Active potassium CHLORIDE (Klor-Con) 20 mEq Packet 2 times daily. Activ e traMADoL (ULTRAM) 50 mg tablet 1 tab(s) orally every 4 hours Active cephALEXin (KEFLEX) 500 mg capsule Take 500 mg by mouth 2 times daily. Active buPROPion HCL (Wellbutrin XL) 150 mg Extended Release 24 hour tablet Take 1 Tablet (150 mg) by mouth daily in the morning. 90 Tablet 3 023 Active levothyroxine 112 mcg tablet Take 1 Tablet (112 mcg) by mouth daily in the morning. 90 Tablet 3 023 Active torsemide (DEMADEX) 100 mg tablet take 1 tablet by mouth twice a day 180 Tablet 3 023 Active HYDROcodone-aceta minophen (NORCO) 5-325 mg tabletIndications :Osteoarthritis of left knee, unspecified osteoarthritis type Take 1 Tablet by mouth every 4 hours as needed for Pain, Moderate. Djd knee severe pain Max Daily Amount: 6 Tablets 42 Tablet 023 Active Additional Information Patient not taking.Reported on 12/11/2023 blood sugar diagnostic (OneTouch Verio test strips) StripIndications: Type 2 diabetes mellitus without complication, without long-term current use of insulin ([facility]) CHECK BLOOD SUGAR TWO TIMES A DAY 200 Strip 3 Active gabapentin (NEURONTIN) 600 mg tablet take 1 tablet by mouth 3 times daily. 90 Tablet 7 024 Active Magnesium Gluconate 12.5 mg magne- sium (250 mg) Tablet 250 mg. 024 Active sertraline HCl (SERTRALINE ORAL) Take by mouth. Active tirzepatide (Mounjaro) 7.5 mg/0.5 mL Pen Injector Inject 0.5 mL (7.5 mg) by subcutaneous injection every 7 days. 6 mL 3 Active albuterol sulfate HFA 90 mcg/actuation aerosol inhaler inhale 2 puffs by mouth every 6 hours as needed for shortness of breath 8.5 Gram 5 Active levothyroxine 125 mcg tablet Take 1 Tablet (125 mcg) by mouth daily in the morning. 100 Tablet 3 024 Active doxycycline hyclate (VIBRAMYCIN) 100 mg capsule Take 1 Capsule (100 mg) by mouth 2 times daily. 20 Capsule 024 Active allopurinoL (ZYLOPRIM) 300 mg tablet TAKE 1 TABLET BY MOUTH EVERY DAY 90 Tablet 3 024 Active famotidine (PEPCID) 20 mg tablet TAKE 1 TABLET BY MOUTH EVERYDAY AT BEDTIME 90 Tablet 3 024 Active insulin aspart U-100 (NovoLOG Flexpen U-100 Insulin) 100 unit/mL pen syringe DOSE 0-10 UNITS GIVE NO MORE THAN 10 MINUTES BEFORE MEAL (LOW DOSE SLIDING SCALE) B.G. < 70 BEGIN HYPOGLYCEMIA PROTOCOL B.G. = 70-130 GIVE 0 UNITS B.G. = 131-180 GIVE 2 UNIT B.G. = 181-240 GIVE 4 UNITS B.G. = 241-300 GIVE 6 UNITS B.G. = 301-350 GIVE 8 UNITS B.G. = 351-400 GIVE 10 UNITS B.G. > 400 GIVE 12 UNITS 15 mL 1 024 Active insulin lispro (HumaLOG KwikPen Insulin) 100 unit/mL pen syringe see instructions, SubQ, tid with meals, 5 each, Injection, 0, 3times a day withmeal BS=70-130 0 UN,EQ=620-234 4 UN,RX=744-762 8 UN,YP=653-684 10 UN,WB=071-918 12 UN,TU=035-028 16 UN,BS>400CALL MD, Instructions Replace Required Details 023 Active fluticasone-umecl idinium-vilantero l (TRELEGY ELLIPTA) 100-62.5-25 mcg Disk with Device Lot: [id number] ex: 09/2025 qty: 2 1 Each 025 Active cyclobenzaprine (FLEXERIL) 5 mg Tablet Take 1 Tablet (5 mg) by mouth daily at bedtime. 10 Tablet 1 022 2024 Discontinued Active Problems Patient Care Coordination No te Formatting of this note migh t be different from the original. Prev 08/14/23 Problem Noted Date Diagnosed Date ESRD (end stage renal disease) 05/09/2023 Type 2 diabetes mellitus wit h hemoglobin A1c goal of less than 7.0% 12/25/2020 Esophagitis 12/14/2018 Cellulitis of left lower extremity 12/04/2018 Vitamin D deficiency 05/20/2017 Vitamin B12 deficiency (non anemic) 05/20/2017 Prediabetes 12/17/2016 Morbid obesity 10/16/2016 Lymphedema 10/16/2016 Cardiomyopathy 10/16/2016 Sleep apnea 10/16/2016 Lymphedema of left leg Resolved Problems Problem Noted Date Diagnosed Date Resolved Date Melena 12/05/2018 02/23/[address] of the abdomen 12/05/2018 0 12/25/2020 ANABELL (acute kidney injury) 12/04/2018 Chest pain 12/04/2018 05/29/2022 Chronic renal insufficiency, stage 3 (moderate) 11/13/2017 09/21/2020 C. difficile diarrhea 10/10/20172017 Overview (10/10/2017): 10/10/17- flagyl 500mg tid x 10 days Encounters Date Type Department Care Team Description 06/09/2024 External Device Data ST[facility] ABSTRACTION Provider, Abstract 06/03/2024 External Device Data [facility] ABSTRACTION Provider, Abstract 06/01/2024 Telephone [place] [address] [facility] [address] [place] [phone] Jose Rodrigues MD Provider Call 05/28/2024 Abstract [place] [address] [facility] [address] [place] [phone] Jose Rodrigues MD 05/28/2024 Abstract [place] [address] [facility] [address] [place] [phone] Jose Rodrigues MD 05/25/2024 External Device Data ST[facility] ABSTRACTION Provider, Abstract 05/21/2024 Refill [place] [address] [facility] [address] [place] [phone] Jose Rodrigues MD 05/18/2024 3:00 PM FUNDRAISING ASSISTANT Office Visit [address] [place] [phone] Jose Rodrigues MD Immunization due (Primary Dx); ESRD (end stage renal disease) ([facility]); Systolic congestive heart failure, unspecified HF chronicity ([facility]); Morbid obesity ([facility]); Diabetic peripheral neuropathy ([facility]); Vitamin D deficiency; Vitamin B12 deficiency (non anemic); Type 2 diabetes mellitus with hemoglobin A1c goal of less than 7.0% ([facility]); Essential hypertension; Gout, unspecified cause, unspecified chronicity, unspecified site; Other hyperlipidemia; Hypomagnesemia; Acute bronchitis due to other specified organisms 05/18/2024 Orders Only [address] [place] [phone] Provider, Abstract 05/10/[address] [place] [phone] Jose Rodrigues MD Medication Assistance 05/10/2024 Telephone [place] [address] [facility] [address] [place] [phone] Jose Rodrigues MD Clinical Consult Before Scheduling 04/27/2024 [facility] Primary Care [address] [place] [place] [phone] Jose Rodrigues MD 04/04/2024 [facility] Internal Medicine [address] [phone] Jose Rodrigues MD 03/13/2024 [facility] Internal Medicine [address] [address] Jose Rodrigues MD from Last 3 Months Immunizations Immunization Administration Dates Next Due (ADACEL/BOOSTRIX)(10 YR UP) TDAP VACCINE, 0.5ML, IM 11/13/2017 (HEPLISAV-B)(18 YR UP) HEPAT ITIS B VACCINE CPG-ADJUVANTED (HEPB-CPG) 2-4 DOSE, IM 03/20/2021,11/21/2020,10/24/2020 (PFIZER)(12 YR UP) COVID-19 VACCINE - EMERGENCY USE AUTHORIZATION, MRNA, [id number](PF) 30 MCG/0.3 ML IM SUSP 10/30/2020,10/08/2020 (PNEUMOVAX 23)(50 YRS UP) PN EUMOCOCCAL POLYSACCHARIDE (PPV23) 0.5 ML, IM 10/13/2021,01/14/2018 (PREVNAR 13)(6 WKS UP) PNEUM OCOCCAL CONJUGATE (PCV13) 0.5 ML, IM 07/24/2021 Hepatitis B Vaccine 09/18/2020,09/18/2020 INFLUENZA VACCINE QUADRIVALE NT 3 YR UP PF IM 04/16/2018 INFLUENZA VACCINE QUADRIVALE NT 6 MOS UP PF IM 01/31/2022,02/08/2021,01/22/2019,05/15 INFLUENZA VACCINE QUADRIVALE NT RECOMB 18 YR UP PF IM 02/20/2023 INFLUENZA VACCINE TRIVALENT SPLIT VIRUS, (6 MOS UP), 0.5ML (PF), IM 05/18/2024 Influenza Seasonal Unspecifi ed Formulation IM 02/08/2021,02/04/2020,02/28/2016,02/21 Influenza Vaccine High Dose 65+ Yrs IM 3 Influenza, Unspecified Formulation 02/22/2000 Family History Medical History Relation Name Comments Healthy Brother BHARATH Healthy Daughter JACK Heart Disease Father Hypertension Father Other Father AORTIC DISECTIO N Heart Disease Maternal Grandfather Hypertension Maternal Grandfather Heart Disease Maternal Grandmother Hypertension Maternal Grandmother High Cholesterol Mother Hypertension Mother Unknown Paternal Grandfather Unknown Paternal Grandmother Healthy Sister LIZZY Healthy Son 1 NOEL Healthy Son 2 LINA Relation Name Status Comments Brother BHARATH Alive Daughter JACK Alive Father Maternal Grandfather Maternal Grandmother Alive Mother Alive Paternal Grandfather Paternal Grandmother Sister LIZZY Alive Son 1 NOEL Alive Son 2 LINA Alive Social History Tobacco Use Types Packs/Day Years Used Date Smoking Tobacco: Never Smokeless Tobacco: Never Tobacco Cessation:Counseling Given: No Alcohol Use Standard Drinks/Week Comments No 0 (1 standard drink = 0.6 oz pur e alcohol) Sex and Gender Information Value Date Recorded Sex Assigned at Not on file Legal Sex Male 11:33 AM CDT Gender Identity Not on file Sexual Orientation Not on file Last Filed Vital Signs Vital Sign Reading Time Taken Comments Blood Pressure 129/71 05/18/2024 2:59 PM FUNDRAISING ASSISTANT Pulse 44 05/18/2024 3:10 PM FUNDRAISING ASSISTANT Temperature 36.1 ??C (96.9 ??F) 05/09/2023 12:[address] Respiratory Rate 18 12/11/2022 12:26 PM CDT Oxygen Saturation 91% 05/18/2024 2:59 PM FUNDRAISING ASSISTANT Inhaled Oxygen Concentration - - Weight 191.4 kg (422 lb) 05/18/2024 2:59 PM FUNDRAISING ASSISTANT Height 190.5 cm (6' 3 ) 05/18/2024 2:59 PM FUNDRAISING ASSISTANT Body Mass Index 52.75 05/18/2024 2:59 PM FUNDRAISING ASSISTANT Plan of Treatment Upcoming Encounters Date Type Department Care Team (Late st Contact Info) Description 06/16/2024 4:00 PM FUNDRAISING ASSISTANT Office Visit [facility] Care [address] [place] [address] Jose Rodrigues MD [address] [place] [address] 12/01/2024 9:00 AM CDT Office Visit [facility] [address] [place] [address] [address] [place] [address] Jose Rodrigues MD [address] [facility] [address] [place] [address] Health Maintenance Due Date Last Done Comments COLORECTAL SCREENING 2014 FIT/FOBT Q 1 year 2014 Flex Sig/CT Colonography Q 5 years 2014 ZOSTER VACCINE (1 of 2) 2019 DIABETES MICROALBUMIN ANNUAL SCREEN 04/25/2022 04/25/2021 Colorectal Cancer Screening 06/17/2022 FIT-DNA Q 3 years 06/17/2022 06/17/2019 DIABETES ANNUAL RETINAL EXAM 07/04/2022, 07/04/2021, 06/28/2020 COVID-19 Vaccine (2023-2 5 season) 2024 10/30/2020, 10/08/2020 DIABETES ANNUAL FOOT EXAM 04/10/20242022, 03/05/2022, 04/25/2021, Additional history exists Preventative Visit- Commercial 05/12/2024 0 08/14/2023, 07/25/2021, 06/09/2019, Additional history exists DIABETES HBA1C Q 6 MONTHS 06/18/20242023, 04/10/2023, 08/03/2020, Additional history exists DIABETES: A1C (Auto Order) 12/16/202412/16, 04/10/2023, 08/03/2020, Additional history exists LDL CHOLESTEROL ANNUAL 12/16/2024 , 04/10/2023, 08/03/2020, Additional history exists DTAP/TDAP/TD VACCINES (2 - T d or Tdap) 11/14/2027 11/13/2017 HEPATITIS B VACCINES Completed 03/20/2021, 11/21/2020, 10/24/2020, Additional history exists INFLUENZA VACCINE Completed 05/18/2024, , 02/20/2023, Additional history exists Procedures Procedure Name Priority Date/Time Associated Diagnosis Comments CHG CHEST X-RAY 2 VW Routine 05/10/2024 4:39 PM FUNDRAISING ASSISTANT LIPID PANEL Routine 12/17/2023 10:06 AM CDT Other hyperlipidemia HEMOGLOBIN A1C Routine 12/17/2023 10:06 AM CDT Type 2 diabetes mellitus with hemoglobin A1c goal of less than 7.0% ([facility]) HM DIABETES EYE EXAM Routine 07/04/2021 COLON CANCER SCREEN, STOOL DNA Routine 06/17/2019 3:35 PM FUNDRAISING ASSISTANT Screening for colon cancer from Last 3 Months or Most Recently Relevant to Health Maintenance Results * CHG CHEST X-RAY 2 VW (05/10/2024 4:39 PM FUNDRAISING ASSISTANT) us Abstract Provider MA - IMAGING Edited Result - Final [facility] CLIA# [id number] [address] [address] * (ABNORMAL) HEMOGLOBIN A1C (12/17/2023 10:06 AM CDT) HEMOGLOBIN A1C 6.2(H) <5.7 % of total Hgb [facility] Comment: For someone without known diabetes, a hemoglobin A1c value between 5.7% and 6.4% is consistent with prediabetes and should be confirmed with a follow-up test. For someone with known diabetes, a value <7% indicates that their diabetes is well controlled. A1c targets should be individualized based on duration of diabetes, age, comorbid conditions, and other considerations. This assay result is consistent with an increased risk of diabetes. Currently, no consensus exists regarding use of hemoglobin A1c for diagnosis of diabetes for children. ESTIMATED AVERAGE GLUCOSE (MG/DL) 131 mg/dL [facility] argelia Sneed ESTIMATED AVERAGE GLUCOSE (MMOL/L) 7.3 mmol/L [facility] Comment: ? This test was performed on the Josiah josselin c503 platform. Effective 07/28/23, a change in test platforms from the Ramirez Industrial Hygiene Engineer to the Josiah josselin c503 may have shifted HbA1c results compared to historical results. Based on laboratory validation testing conducted at [facility], the Josiah platform relative to the Ramirez platform had an average increase in HbA1c value of < or = 0.3%. This difference is within accepted variability established by the National Glycohemoglobin Standardization Program. Note that not all individuals will have had a shift in their results and direct comparisons between historical and current results for testing conducted on different platforms is not recommended. Test Performed at: [facility] [place] [address] [address] [place] ??[phone] AnnaBonita Frost Blood 12/17/2023 10:0 6 AM CDT 12/17/2023 10:06 AM CDT us Jose Rodrigues MD CHEMISTRY ORDERABLES Final Re sult [facility] [phone] [place] [address] [address] [place] [address] * (ABNORMAL) LIPID PANEL (12/17/2023 10:06 AM CDT) CHOLESTEROL 131 <200 mg/dL [facility] HDL 35(L) > OR = 40 mg/dL [facility] TRIGLYCERIDE 175(H) <150 mg/dL [facility] LDL CALCULATED 71 mg/dL (calc) [facility] Comment: Reference range: <100 Desirable range <100 mg/dL for primary prevention; ?? <70 mg/dL for patients with CHD or diabetic patients with > or = 2 CHD risk factors. LDL-C is now calculated using the Carlos calculation, which is a validated novel method providing better accuracy than the Friedewald equation in the estimation of LDL-C. Puneet LEE et al. RENÉ. 2013;310(19): 1400-6462 (http://education.Trilibis.Bag Borrow or Steal/faq/EQH566) CHOL/HDL RATIO 3.7 <5.0 (calc) [facility] NON-HDL CHOLESTEROL 96 <130 mg/dL (calc) [facility] Comment: For patients with diabetes plus 1 major ASCVD risk factor, treating to a non-HDL-C goal of <100 mg/dL (LDL-C of <70 mg/dL) is considered a therapeutic option. Test Performed at: [facility] [address] [place] ??[address] Devorah Frost MD Blood 12/17/2023 10:0 6 AM CDT 12/17/2023 10:06 AM CDT Jose Rodrigues MD CHEMISTRY ORDERABLES Final Re sult [facility] [phone] [facility] [address] [place] [address] * DIABETES EYE EXAM (07/04/2021) Abstract Provider HEALTH MAINTENANCE Edited Resu lt - Final [facility] CLNE# [id number] [place] [place] [address] * COLON CANCER SCREEN, STOOL DNA (06/17/2019 3:35 PM FUNDRAISING ASSISTANT) COLOGUARD RESULT Negative Not Applicable [facility] Comment: A negative result indicates a low likelihood that a colorectal cancer (CRC) or an advanced adenoma (adenomatous polyps with more advanced pre-malignant features) is present. The chance that a person with a negative Cologuard test has a colorectal cancer is less than 1 in 1500 (negative predictive value >99.9%) or has an advanced adenoma is less than 5.3% (negative predictive value 94.7%). These data are based on a prospective cross-sectional screening study of 10,000 individuals at average risk for colorectal cancer who were screened with both Cologuard and colonoscopy. (Imperiale T. et al, N Engl J Med 2014;370(14):4456-2362) COLOGUARD RE-SCREENING RECOMMENDATION: Periodic routine colorectal cancer screening is an important part of preventive healthcare for asymptomatic persons at average risk for colorectal cancer. Following a negative Cologuard result, the [place] [employer] Society and U.S. Multi-Society Task Force screening guidelines recommend a Cologuard re-screening interval of 3 years. References: [place] [employer] (ACS). Colorectal cancer prevention and early detection. [place], [place]: [place] [employer]; [updated 2015Sep 02]. https://www.cancer.org/cancer/jexbh-zqftjd-tvlxss/kexppavyc-fyzqjiybe-tchqmvx/ac s-rec ommendations.html. Accessed January 09, 2018; Ricardo DK, Jake AVILES, Marty RosasK, Colorectal Cancer Screening: Recommendations for Physicians and Patients from the U.S. Multi-Society Task Force on Colorectal Cancer Screening, Am J Gastroenterology 2017; 112:9245-6185. Test Type: Composite algorithmic analysis of stool DNA-biomarkers with hemoglobin immunoassay. ??Quantitative values of individual biomarkers are not reportable and are not associated with individual biomarker result reference ranges. Precautions and Limitations: Cologuard is intended for colorectal cancer screening of adults of either sex, 50 years or older, who are at typical average-risk for colorectal cancer. A negative Cologuard test result does not guarantee the absence of colorectal cancer or advanced adenoma (pre-cancer). Patients with a negative Cologuard test result should be advised to continue participating in a colorectal cancer screening program. Cologuard may produce a positive result, even though a colonoscopy may not find colorectal cancer or precancerous polyps. The performance of Cologuard has been established in a cross sectional study (i.e., single point in time). Performance has not been evaluated in adults who have been previously tested with Cologuard or in patients less than 50 years of age. Cologuard has been approved for use by the U.S. FDA. Cologuard performance data in a 10,000 patient pivotal study using colonoscopy as the reference method can be accessed at the following location: www.YaData.com/results. Additional description of the Cologuard test process, warnings and precautions can be found at www.cologuardtest.com. Rx Only. Stool STOOL SPECIMEN / Unknown 06/17/2019 3:35 PM FUNDRAISING ASSISTANT 06/18/2019 1:25 PM FUNDRAISING ASSISTANT us Jose Rodrigues MD BODY FLUIDS AND STOOLS Final Result [facility] CLIA # [id number] [address] , [address] [place] [address] from Last 3 Months or Most Recently Relevant to Health Maintenance Insurance BLUE ACCESS/TRUE BLUE PPO Advance Directives For more information, please contact: [phone] * Full Code (Latest Code Status on File) Date Activated Date Inactivated Comments 12/05/2018 11:15 AM 12/11/2018 4:28 PM * Full Code Date Activated Date Inactivated Comments 12/05/2018 10:53 AM 12/05/2018 11:14 AM * Full Code Date Activated Date Inactivated Comments 12/05/2018 10:12 AM 12/05/2018 10:53 AM * Full Code Date Activated Date Inactivated Comments 12/05/2018 12:48 AM 12/05/2018 10:12 AM * Full Code Date Activated Date Inactivated Comments 11/17/2017 7:49 AM 11/18/2017 8:32 PM Care Teams Stained Glass Installer Relationship Specialty Start Date End Date Jose Rodrigues MD PCP - General Internal Medicine 10/02/16
--- OUTSIDE RECORDS SUMMARY | 2024-06-10 16:25 | XMS_ITS | Encounter Summary ---
Author Organization [facility] Address [address] [place] [address] Care Team Providers Care Compressor Technician Name Role Phone Jose Rodrigues MD Primary Care Provider [phone] Reason for Visit * Reason Onset Date Comments Red Flag- Fever 101 02/12/2023 Encounter Details Date Type Department Care Team (Late st Contact Info) Description 02/12/[address] [facility] Primary Care [address] [place] [address] Jose Rodrigues MD [address] [facility] [address] [place] [address] Red Flag- Fever 101 Social History Tobacco Use Types Packs/Day Years [...] encounter Miscellaneous Notes * Telephone Encounter - Kayce Amaral - 02/12/2023 1:13 PM CDT Provider: Jose Rodrigues MD Next office visit: 05/15/2023 Jose Rodrigues MD Caller: Phoebe Mom Message: Patient Plastics Heat Welder Kayce spoke with Farnaz on the red flag line for Dr. Rodrigues's office and was instructed to tell the patient to go to the ER. Farnaz stated there wasn't anyone in the office that could see the patient. Kayce delivered the message to Phoebe to take patient to the ER. Call-back Number: [phone] * Telephone Encounter - Cindy Amaralique - 02/12/2023 1:06 PM CDT The caller has been advised they will be transferred to a clinical coworker as they have presented the following information that may require further consultation or possible emergency action. Caller: Sha Sandhu Reason for Triage: Fever - any age over 101 F and another red flag symptom (Fever Currently 101.8) Patient has rash on both feet and open sores, edema in both legs. Call back number: [phone] Home Phone Work Phone documented in this encounter Plan of Treatment Upcoming Encounters Date Type Department Care Team (Late st Contact Info) Description 06/16/2024 4:00 PM WELL LOGGING MUD ANALYSIS CAPTAIN Office Visit [address] [place] [id number] Jose Rodrigues MD [address] [place] [phone] 12/01/2024 9:00 AM CDT Office Visit [address] [place] [address] Jose Rodrigues MD [address] [place] [address] [place] [phone] documented as of this encounter Visit Diagnoses [...] documented as of this encounter Care Teams Compressor Technician Relationship Specialty Start Date End Date Jose Rodrigues MD PCP - General Internal Medicine 10/02/16 documented as of this encounter
--- OUTSIDE RECORDS SUMMARY | 2024-06-10 16:25 | XMS_ITS | Clinical Summary ---
Author Organization [facility] Address [address] [place] [address] Care Team Providers Care Field Placement Director Name Role Phone Jose Rodrigues MD Primary [...] Morbid obesity 04/14/2019 BMI 50.0-59.9, adult 04/14/2019 Surgical History Surgery Date Site/Laterality Comments CARDIAC CATHETERIZATION NECK SURGERY CARDIAC DEFIBRILLATOR PLACEMENT Medical History Medical History Date Comments Hypertension Hyperlipidemia Diabetes mellitus (HCC) Renal disorder Family History Medical History Relation Name Comments Heart disease Other Hypertension Other Relation Name Status Comments Other Social History Tobacco Use Types Packs/Day Years [...] on file Legal Sex Male 8:10 PM CAPACITY ANALYST Gender Identity Not on file Sexual Orientation Not on file Obstetrics History Last Filed Vital Signs Vital Sign Reading Time Taken Comments Blood Pressure 115/86 05/03/2023 7:00 AM CAPACITY ANALYST Pulse 79 05/03/2023 7:00 AM CAPACITY ANALYST Temperature 36.4 ??C (97.5 ??F) 05/03/2023 5:57 AM CS T Respiratory Rate 17 05/03/2023 5:59 AM CAPACITY ANALYST Oxygen Saturation 96% 05/03/2023 7:00 AM CAPACITY ANALYST Inhaled Oxygen Concentration - - Weight 198 kg (436 lb 8.2 oz) 05/03/2023 5:59 AM CAPACITY ANALYST Height 185.4 cm (6' 1 ) 06/28/2022 3:51 PM CAPACITY ANALYST Body Mass Index 57.59 06/28/2022 3:51 PM CAPACITY ANALYST Plan of Treatment Health Maintenance Due Date Last Done Comments Colon Cancer Screening-Colonoscopy 1969 Depression Screening 1969 Hepatitis C Screening 1969 Prostate Cancer Screening-PSA 1969 Regular Well Visit/Exam 18-64 1987 Zoster Vaccine (1 of 2) 2019 Covid-19 Vaccine ( season) 2024 10/30/2020, 10/08/2020 Influenza Vaccine (#1) 2024 3, 01/31/2022, 02/08/2021, Additional history exists DTaP/Tdap/Td Vaccine (2 - Td or Tdap) 11/14/2027 11/13/2017 Pneumococcal vaccine <65 Aged Out 022, 07/24/2021, 01/14/2018 No longer eligible based on patient's age to complete this topic Insurance BLUE [facility] [place] CHOICE [facility] [place] [employer] [facility] OOS [employer] Care Teams Field Placement Director Relationship Specialty Start Date End Date Jose Rodrigues MD [address] [place] [phone] PCP - General 10/21/16
--- NOTE | 2024-06-10 16:43 | ED.URI ---
HPI - URI/Sore Throat General Chief Complaint: Upper Respiratory Infection Stated Complaint: cough/wheezing Source: patient Mode of arrival: ambulatory (crutches) Limitations: no limitations History of Present Illness HPI Narrative: 54 y/o male with HTN, CHF and DM presented for c/o cough Intermittently for over 1 week. Endorses sob with exertion. Also reports nasal congestion, body aches, subjective fever, shortness of breath with exertion. Endorses decreased appetite and malaise. Related Data Home Medications ?Medication ?Instructions ?Recorded ?Confirmed ?Last Taken ?Type allopurinol 100 mg tablet 1 tablet PO DAILY 11/16/21 11/18/21 Unknown History allopurinol 300 mg tablet 1 tablet PO DAILY 11/16/21 11/18/21 Unknown History atorvastatin 20 mg tablet 1 tablet PO DAILY 11/16/21 11/18/21 Unknown History bupropion HCl 150 mg tablet,12 hr 150 mg PO BID 11/16/21 11/16/21 Unknown History sustained-release carvedilol 25 mg tablet 25 tablet PO TID 11/16/21 11/18/21 Unknown History ezetimibe 10 mg tablet 1 tablet PO DAILY 11/16/21 11/18/21 Unknown History famotidine 20 mg tablet 1 tablet PO DAILY 11/16/21 11/18/21 Unknown History gabapentin 600 mg tablet 1 tablet PO TID 11/16/21 11/18/21 Unknown History levothyroxine 100 mcg tablet 1 tablet PO DAILY 11/16/21 11/18/21 Unknown History sacubitril 49 mg-valsartan 51 mg 1 tablet PO BID 11/16/21 11/18/21 Unknown History tablet (Entresto) sevelamer carbonate 800 mg tablet 1 tablet PO TID 11/16/21 11/18/21 Unknown History spironolactone 25 mg tablet 2 tablet PO DAILY 11/16/21 11/18/21 Unknown History insulin aspart U-100 .ROUTE 05/10/24 Unknown History torsemide .ROUTE 05/10/24 Unknown History tirzepatide 10 mg/0.5 mL 10 mg subcut WEEKLY 06/10/24 Unknown History subcutaneous pen injector (Mounjaro) Allergies Allergy/AdvReac Type Severity Reaction Status Date / Time No Known Allergies Allergy Verified 06/10/24 16:36 Review of Systems Review of Systems: Per HPI All systems reviewed & are unremarkable except as noted in HPI and below [facility] Past Medical History Medical History Kidney disorder was formerly on dialysis but is no longer requiring dialysis Hemodialysis access, AV graft former history of dialysis Presence of combination internal cardiac defibrillator (ICD) and pacemaker Neuropathy Hypothyroidism Diabetes Hyperlipidemia Hypertension CHF (congestive heart failure) Surgical History Surgical History H/O left knee surgery Social History Social History Smoking status: Never smoker Alcohol intake: unknown Substance use: unknown Living arrangements: with family Gender identity (if verbalized by the patient): Male Comments At time of signature, I have reviewed and agree with nursing past medical, surgical, social and family history unless otherwise noted. Please see nursing chart for further information. There is no relevant family history pertinent to the presenting complaint Exam Narrative: GENERAL: mildly ill-appearing, in no acute distress. EYES: EOMI. No redness or drainage. Conjunctivae normal. ENT: Mucous membranes pink and moist. rhinorrhea. TMs normal bilaterally. Throat normal. Uvula midline. NECK: Normal AROM. Supple. CHEST: No respiratory distress. Wheezing to left upper lung HEART: Regular rate and rhythm. No murmur appreciated. ABDOMEN: Soft, nontender, nondistended, normal active bowel sounds. EXTREMITIES: Normal range of motion.left knee brace,crutches SKIN: Warm, dry, no rash. Capillary refill normal. Normal skin turgor. NEURO: Alert and oriented x3. Gait steady. PSYCH: Normal affect. Course Course Emergency Course: Patient is aware of diagnosis, understands and agrees to treatment plan. Anticipatory guidance given. Patient agrees to follow-up as directed and is aware of reasons to seek care at the emergency department. Portions of this record may have been created with voice recognition software Level of Care: Express Care Visit Vital Signs Vital signs: Vital Signs Temperature 98.2 F 06/10/24 16:25 Pulse Rate 56 L 06/10/24 16:25 Respiratory Rate 24 H 06/10/24 16:25 Blood Pressure 130/67 06/10/24 16:25 Pulse Oximetry 99 06/10/24 16:25 Oxygen Delivery Room Air 06/10/24 16:25 Temperature 98.2 F 06/10/24 16:25 Pulse Rate 56 L 06/10/24 16:25 Respiratory Rate 24 H 06/10/24 16:25 Blood Pressure 130/67 06/10/24 16:25 Pulse Oximetry 99 06/10/24 16:25 Oxygen Delivery Room Air 06/10/24 16:25 MDM - URI/Sore Throat MDM Narrative Medical decision making narrative: POS flu. Pt became lightheaded, diaphoretic while in xray. Sat in a chair and reported immediate improvement. Pt was assisted to his room in w/c. Discussed physical exam findings. Advised ER transfer, pt declined. The patient is AA&Ox3, free from distracting injury. The patient has demonstrated concrete thinking/reasoning, has maintained an web site administrator/reasonable conversation, appears to have intact insight/judgment/reason and therefore has capacity to make decisions. Given the patients presentation, we communicated our concern for near syncopal symptoms in laymans terms. The patient verbalized an understanding. The patient is aware the evaluation is incomplete & many troublesome conditions have not been r/o. We have discussed the need for further ED workup. We have discussed the range of possible dx, potential testing & treatment options. Our discussions included the potential outcomes of leaving AMA, including worsening of their condition, becoming permanently disabled/in pain/critically ill, or . Despite these efforts, we were unable to convince the pt to go to the ER. We have attempted to offer tx/rx/guidance for any dangerous conditions which are most likely and/or dangerous. We have answered all questions and have implored the patient to go to ER [facility] to complete the w/u. A staff member witnessed the patient consenting to AMA. Differential Diagnosis Differential diagnosis: Likely upper respiratory infection, sinusitis, viral infection, bronchitis and influenza Lab Data Labs: Lab Results 06/10/24 Range/Units 16:30 POC Influenza A Ag Positive (Negative) POC Influenza B Ag Negative (Negative) POC SARS CoV-2 Ag Negative (Negative) Discharge Plan Discharge Clinical Impression: Influenza, Near syncope Patient Disposition: Left Against Medical Advice Condition: Stable Instructions: Influenza (ED) Additional Instructions: You were advised to transfer to the ER and you decline at this time. You were made aware of the risk of refusal including worsening of your condition and . Report to the ER immediately by calling 911 for any worsening symptoms. Influenza positive You should avoid crowds until you are fever free for 24 hours without the use of fever reducing medications, or the symptoms are improved Rest. Drink plenty of fluids. Tylenol 1000mg every 8 hours as needed for pain/fever Recommend Flonase spray and Zyrtec (or Claritin/Monalisa) for sinus pressure/congestion over the counter Cough syrup may cause drowsiness; avoid driving or take it at night time. Follow up with your primary care provider as needed Go to the ER for worsening symptoms or concerns Patient Language: Bangladeshi Prescriptions: No Action carvedilol 25 mg tablet 25 tablet PO TID gabapentin 600 mg tablet 1 tablet PO TID atorvastatin 20 mg tablet 1 tablet PO DAILY allopurinol 100 mg tablet 1 tablet PO DAILY spironolactone 25 mg tablet 2 tablet PO DAILY levothyroxine 100 mcg tablet 1 tablet PO DAILY famotidine 20 mg tablet 1 tablet PO DAILY allopurinol 300 mg tablet 1 tablet PO DAILY ezetimibe 10 mg tablet 1 tablet PO DAILY sevelamer carbonate 800 mg tablet 1 tablet PO TID Entresto 49-51 mg tablet 1 tablet PO BID bupropion HCl 150 mg Tablet Sustained-Release 12 Hr 150 mg PO BID torsemide .ROUTE insulin aspart U-100 [Novolog FlexPen U-100 Insulin] .ROUTE azithromycin 250 mg tablet See Rx Instructions .ROUTE .COMPLEX Qty: 6 0RF Rx Instructions: For 250 mg dose pack: take 500 mg today (day 1), then 250 mg for 4 days (days 2-5) prednisone 20 mg tablet 20 mg PO BID Qty: 10 0RF Mounjaro 10 mg/0.5 mL pen injector 10 mg SUBCUT WEEKLY Follow-up/Referrals: Lilia,Jose Lawrence MD [Primary Care Provider] -
[2024-06-10 16:49] LABS: EDCOVIDSCREEN Negative (Negative); EDINFLUASCREEN Positive (Negative); EDINFLUBSCREEN Negative (Negative)
--- NOTE | 2024-06-10 16:50 | PC.NURSE ---
PT HAD NEAR SYNCOPAL EPISODE IN XRAY WITH SWEATINESS AND TURNING PALE.. ONCE ASSISTED INTO WHEELCHAIR AND GIVEN COOL RAG, HE THEN STATED HE FELT BETTER, AND COLOR BACK INTO FACE. PR MANAGER TO ASSESS IN XRAY.
== END 2024-06-10 17:15 | disposition left against medical advice (07) ==
PROVIDERS: Emergency Provider Nurse Practitioner Family; PCP Internal Medicine
DX: J11.1 Influenza due to unidentified influenza virus with other respiratory manifestations (principal); R55 Syncope and collapse; I11.0 Hypertensive heart disease with heart failure; I50.9 Heart failure, unspecified; E11.9 Type 2 diabetes mellitus without complications; Z20.822 Contact with and (suspected) exposure to COVID-19; E03.9 Hypothyroidism, unspecified; E78.5 Hyperlipidemia, unspecified; Z95.0 Presence of cardiac pacemaker
CPT/HCPCS: 71046; 87426; 87804; 99213; G0463